=== PATIENT | female | born 1995 | race Caucasian/White ===

== ENCOUNTER 2022-03-06 23:28 | Emergency (ER) | payer OTHER, SELFPAY ==
--- NOTE | ~2022-03-06 | CT_ITS ---
EXAMINATION: NONCONTRAST HEAD CT NONCONTRAST CERVICAL SPINE CT INDICATION INFORMATION: Fall, injury, neck pain COMPARISON: None TECHNIQUE: Separate noncontrast CT examinations of the head and cervical spine were performed. Coronal head CT images and coronal and sagittal cervical spine images were created at the technologist workstation. DLP: 1448 mGy-cm DOSE LOWERING TECHNIQUES: This CT examination was performed using dose optimization techniques as appropriate, variously including the following: - Automated exposure control - Adjustment of mA and/or kV according to patient size (this includes techniques or standardized protocols for targeted exams were dose is matched to indication/reason for exam; i.e. extremities or head) - Use of iterative reconstruction technique FINDINGS: Head: There is no evidence of acute intracranial hemorrhage or territorial infarction. No abnormal mass-effect or midline shift is seen. Echevarria to white matter differentiation is well preserved. No extra-axial fluid collections are identified. The ventricles are normal in size. There is no abnormal attenuation within the brain parenchyma. No acute fracture seen. Mild right posterior scalp soft tissue swelling. The mastoid air cells and visualized portions of the paranasal sinuses are well-aerated. Cervical spine: There is reversal of the normal cervical lordosis, which may be due to positioning or muscle spasm. There is anatomic alignment of the vertebral bodies and posterior elements. Vertebral body heights are maintained. Intervertebral disc spaces are preserved. No evidence of acute fracture. No prevertebral soft tissue swelling. Visualized portions of the lung apices are unremarkable. The thyroid gland is unremarkable. CT/CT cervical spine wo IV con IMPRESSION: HEAD: No acute intracranial findings. Mild right posterior scalp soft tissue injury. CERVICAL SPINE: Reversal of the normal cervical lordosis, which may be due to positioning or muscle spasm. No additional acute findings identified.
[2022-03-07 00:09] VITALS: BP 122/72; PULSE 89; RESP 17; TEMP 36.3; O2SAT 97; BMI 32.1
--- NOTE | 2022-03-07 01:02 | ED.FALL ---
HPI - Fall General Chief Complaint: Wound/Laceration Stated Complaint: fall, head wound Time Seen by Provider: 03/07/22 00:38 Source: patient Mode of arrival: ambulatory Limitations: no limitations History of Present Illness HPI Narrative: 26-year-old female who presents emergency department for evaluation of headache, nausea, vomiting. Patient states that she was drinking 1 day prior and fell at 04:00 hours. She does not recall the details of the fall. She states that she did have a laceration to the right back of her head but did not come to the emergency department at the time of the fall. She states that throughout the day she has had a constant, pounding headache which is 10/10 located the back of her head the area of the laceration. She states that she has had nausea and vomiting. She has taken naproxen and Tylenol without any relief for pain. She denies any numbness or weakness. She denied loss of bowel or bladder control. She states that her last tetanus shot was within 5 years and she is up-to-date. MD complaint: fall Onset (ago): hour(s) (20) Fall from: standing Fall witnessed: no Loss of consciousness: unsure Prolonged down time: no Symptoms prior to fall: none Context: alcohol use Location of injury: head Severity scale (1-10): 10 Quality: throbbing Associated symptoms (after fall): headache and neck pain Related Data Previous Rx's Medication Instructions Recorded morphine 15 mg immediate release 15 mg PO Q4-6H PRN pain #10 tabs 03/07/22 tablet ondansetron 4 mg disintegrating 4 mg PO Q6-8H PRN nausea and 03/07/22 tablet vomiting #14 tabs Allergies Allergy/AdvReac Type Severity Reaction Status Date / Time No Known Allergies Allergy Verified 03/07/22 01:20 Review of Systems Review of Systems: Yes all other systems are reviewed and are negative [facility] Past Medical History [facility] Narrative: Past medical history: None. Past surgical history: Bilateral tubal ligation. Social history: She denies tobacco use. She does drink alcohol and states she was drinking prior to falling. She denies drug use. Social History Social History Advance Directives: No Advance Directives Information Provided: Yes Physical Exam Vital Signs: Vital Signs: Last Vital Signs Temp 97.3 F 03/07/22 00:09 Pulse 89 03/07/22 00:09 Resp 16 03/07/22 01:37 BP 122/72 03/07/22 00:09 Pulse Ox 97 03/07/22 00:09 O2 Del Method 03/07/22 00:09 BMI result Body Mass Index 32.1 Const: General: cooperative and no acute distress Orientation/consciousness: oriented to person and oriented to place Limitations: no limitations HEENT: Other: 5 cm linear laceration to the right posterior scalp, this is not actively bleeding it does appear to be healing at this point, does not appear to be infected Head: Yes normal to inspection and Yes normocephalic Ears: external ears normal General nose exam: Normal external nose present Face and sinus: Yes normal facial exam Mouth: Normal oral and palatal mucosa present Throat: Yes posterior oropharynx normal Eyes: General: appearance normal, both eyes and all related structures Pupils: Equal, round and reactive pupils present Neck: Neck: Yes normal visual inspection, Yes no lymphadenopathy, Yes trachea midline and Yes supple Chest: Chest palpation & inspection: normal inspection of the chest and normal palpation of entire chest wall Resp: Effort & Inspection: normal respiratory effort and able to speak in complete sentences Auscultation: clear to auscultation bilaterally Cardio: Rate: regular rate Rhythm: regular rhythm Heart sounds: S1 normal heart sound present, S2 normal heart sound present and no murmurs GI: Inspection: Yes normal to inspection Palpation (GI): Soft to palpation, nontender and no guarding Auscultation: normal bowel sounds : General: Yes no CVA tenderness Back/Spine/Pelvis: Back: no CVA tenderness Skin: General skin exam: no rashes or lesions noted Neuro: General: oriented to person and oriented to place Cranial nerves: Yes CN's II-XII intact bilaterally and Yes Equal, round and reactive pupils present Cognition (Neuro): normal cognition Motor exam (neuro): 5/5 motor strength present throughout Extrem: General: Yes normal to inspection Psych: Appearance: grossly normal Speech and movement: Normal speech and movement present Affect: normal affect Attitude: cooperative Thought process: Normal thought process present Thought content: Normal thought content present Course Course Course Narrative: 26-year-old female who presents emergency department for evaluation of a head injury that occurred approximately 20 hours prior to being evaluated in the emergency department. Patient has a healing laceration to her scalp which is too old to be repaired. Patient had headache, nausea and vomiting. Patient's physical examination was otherwise unremarkable in her neurologic exam was nonfocal. I did order laboratory evaluation, CT scan of the patient's head and neck without IV contrast. Patient was treated with morphine 4 mg IV Zofran 4 mg IV and normal saline x1 L. 0229: The patient's CT scan results are not available and her labs are not available at this time. Patient states that she has an emergency at home has to go home to take care of her kids. At this time I believe that the patient is stable to be discharged however I told her it is possible she could have skull fracture bleeding in her brain if she leaves at this time she could . The patient understood the risks of leaving and decided that she will go home because she needs to take care of her children. I will contact the patient with the results as soon as they are available to me. 0412: CT scan of the patient's head and neck was normal. I did contact the patient advise her of these results. Told her to continue taking ibuprofen and Tylenol and for pain not relieved by these 2 medications she was prescribed morphine. She also prescribe Zofran for her nausea and vomiting. Medications Administered Discontinued Medications Generic Name Dose Route Start Last Admin Trade Name Freq PRN Reason Stop Dose Admin Sodium Chloride 1,000 mls @ 999 mls/hr 03/07/22 01:14 03/07/22 02:36 Ns IV 03/07/22 02:14 Infused .Q1H1M STA Infusion Morphine Sulfate 4 mg 03/07/22 01:14 03/07/22 01:37 Morphine Sulfate 4 Mg/Ml Cartridge IVPUSH 03/07/22 01:15 4 mg ONCE STA Administration Protocol Ondansetron HCl 4 mg 03/07/22 01:14 03/07/22 01:37 Ondansetron Hcl 4 Mg/2 Ml Vial IVPUSH 03/07/22 01:15 4 mg ONCE ONE Administration MDM - Fall Lab Data Result diagrams: 03/07/22 01:49 03/07/22 01:49 Labs: Lab Results 03/07/22 03/07/22 03/07/22 Range/Units 01:49 01:49 01:49 WBC 5.9 (4.8-10.8) X10*3/uL RBC 4.13 L (4.20-5.50) X10*6/uL Hgb 14.0 (12.0-16.0) g/dl Hct 39.3 (37.0-47.0) % MCV 95.2 (80.0-98.0) fL MCH 33.9 H (27.0-33.0) pg MCHC 35.6 H (31.0-35.0) g/dl RDW 12.6 (11.0-16.0) % Plt Count 200 (160-400) X10*3/uL MPV 9.6 (9.4-12.3) fL Immature Gran % (Auto) 0.3 (0.0-0.4) % Neut % (Auto) 39.1 L (45-73) % Lymph % (Auto) 49.9 H (20-40) % [place] % (Auto) 7.8 (2-11) % Eos % (Auto) 2.4 (0-4) % Baso % (Auto) 0.5 (0-2) % Lymph # (Auto) 3.0 (1.2-4.9) X10*3/uL [place] # (Auto) 0.5 (0.1-1.2) X10*3/uL Eos # (Auto) 0.1 (0.0-0.4) X10*3/uL Baso # (Auto) 0.0 (0.0-0.2) X10*3/uL Abs Immat Gran (auto) 0.02 (0.00-0.03) X10*3/uL Absolute Neuts (auto) 2.3 (2.0-8.3) x10*3/uL Absolute Nucleated RBC 0.000 (0.0-0.012) X10*3/uL Nucleated RBC % (auto) 0.0 (0.0-0.2) /100WBC PT 12.4 (10.0-13.1) SEC INR 1.1 (0.9-1.1) APTT 31.7 (26.0-36.4) SEC Sodium Cancelled Potassium Cancelled Chloride Cancelled Carbon Dioxide Cancelled Anion Gap Cancelled BUN Cancelled Creatinine Cancelled Estim Creat Clear Calc Cancelled Estimated GFR Cancelled Random Glucose Cancelled Calcium Cancelled Total Bilirubin Cancelled AST Cancelled ALT Cancelled Alkaline Phosphatase Cancelled Total Protein Cancelled Albumin Cancelled Discharge Plan Discharge Clinical Impression: Closed head injury, Laceration of scalp, Concussion, Nausea & vomiting Patient Disposition: Home, Self-Care Instructions: Concussion (ED) Additional Instructions: I will call you with the results of the CT scans of your head and neck. Take ibuprofen 200 mg pills, 3 pills every 6 hours as needed for pain. Take Tylenol (acetaminophen) 2 pills every 4-6 hours as needed for pain. For pain not relieved by ibuprofen or Tylenol take morphine 15 mg pills, 1 pill every 4 hours as needed for pain. This medication will make you sleepy, do not drive or work while taking this medication. Morphine is a narcotic medication and can be addicting. If you are concerned about addiction you can ask the pharmacist for less pills or do not get this prescription filled. Take Zofran ODT 4 mg pills, 1 pill dissolved in your mouth every 8 hours as needed for nausea and vomiting. Follow-up with your doctor in 2 days. Please return to the emergency department if your symptoms get worse or if you develop any symptoms that are concerning to you. Apply bacitracin twice a day for 10 days to the laceration under scalp. Watch the laceration for signs of infection which would include increased pain, increased swelling, drainage of pus. If you see any of these signs you think the laceration is infected then you should call your doctor for follow-up return to the emergency department. Prescriptions: New morphine 15 mg tablet 15 mg PO Q4-6H PRN (Reason: pain) Qty: 10 0RF Rx Instructions: The patient may ask for partial fill; Partial Fill upon patient request. ondansetron 4 mg tablet,disintegrating 4 mg PO Q6-8H PRN (Reason: nausea and vomiting) Qty: 14 0RF Interventions: ED Discharge Assessment Last Done: 03/07/22 02:39 Discharge Date/Time: 03/07/22 02:40
[2022-03-07 01:37] VITALS: RESP 16
[2022-03-07] MEDS: Morphine Sulfate 4 MG/ML CARTRIDGE IVPUSH (01:37)
[2022-03-07] MEDS: ondansetron HCL 4 MG/2 ML VIAL IVPUSH (01:37)
[2022-03-07] MEDS: 0.9 % Sodium Chloride 1,000 ML 999 ML IV (01:37)
[2022-03-07 01:54] LABS: Basophils Percent Auto 0.5 % (0-2); Eosinophils Absolute Auto 0.1 X10*3/uL (0.0-0.4); Eosinophils Percent Auto 2.4 % (0-4); Hematocrit 39.3 % (37.0-47.0); Imm Gran Abs Auto 0.02 X10*3/uL (0.00-0.03); Imm Gran Pct Auto 0.3 % (0.0-0.4); Lymphocytes Percent Auto 49.9 % (20-40); MANUAL DIFF FLAG NO; Mean Corpuscular HGB Conc 35.6 g/dl (31.0-35.0); Mean Corpuscular Hemoglobin 33.9 pg (27.0-33.0); Mean Corpuscular Volume 95.2 fL (80.0-98.0); Mean Platelet Volume 9.6 fL (9.4-12.3); Monocytes Absolute Auto 0.5 X10*3/uL (0.1-1.2); Monocytes Percent Auto 7.8 % (2-11); Neutrophils Absolute Auto 2.3 x10*3/uL (2.0-8.3); Neutrophils Percent Auto 39.1 % (45-73); Platelet Count 200 X10*3/uL (160-400); Red Blood Count 4.13 X10*6/uL (4.20-5.50); Red Cell Distribution Width 12.6 % (11.0-16.0); White Blood Count 5.9 X10*3/uL (4.8-10.8)
[2022-03-07 02:00] LABS: INTERNATIONAL NORM RATIO 1.1 (0.9-1.1); Prothrombin Time 12.4 SEC (10.0-13.1)
[2022-03-07 02:03] LABS: Partial Thromboplastin Time 31.7 SEC (26.0-36.4)
--- NOTE | 2022-03-07 02:37 | PC.NURSE ---
Pt. resting in bed with IV in place. Pharmacy called for a recollect of labs. Pt. was having an emergency at home, therefore pt. rapidly dc'd. Labs not collected, aware and okayed. Pt. to be called with results of CT scans.
== END 2022-03-07 02:40 | disposition home or self-care (01) ==
PROVIDERS: Emergency Provider Emergency Medicine Emergency Medical Services
DX: S01.01XA Laceration without foreign body of scalp, initial encounter (principal); S06.0X0A Concussion without loss of consciousness, initial encounter; R51.9 Headache, unspecified; M54.2 Cervicalgia; W18.30XA Fall on same level, unspecified, initial encounter; Y93.9 Activity, unspecified; Y92.9 Unspecified place or not applicable; Y99.9 Unspecified external cause status
CPT/HCPCS: 36415; 70450; 72125; 80053; 85025; 85610; 85730; 96361; 96374; 96375; 99283; 99284; J2270; J2405

== ENCOUNTER 2022-07-27 01:58 | Emergency (ER) | payer MEDICAID, SELFPAY ==
--- NOTE | ~2022-07-27 | US_ITS ---
EXAMINATION: US PELVIS CLINICAL INFORMATION: Pelvic pain. Rule out torsion. COMPARISON: October 11, 2010. TECHNIQUE: Ultrasound of the pelvis is performed using both transabdominal and transvaginal transducers along with Doppler. Transvaginal imaging is performed due to inadequate visualization transabdominally. FINDINGS: Uterus: The uterus is anteverted and measures 9.7 x 4.7 x 5.7 cm. The double wall endometrial thickness is 7 mm. The uterus is smooth in contour and has normal myometrial echogenicity. No visible fibroid. Adnexa: Both ovaries are visualized. There is normal color flow to the adnexa. There is no evidence of ovarian torsion. No pelvic ascites or fluid collection is appreciated. Right ovary measures 2.6 x 1.8 x 2.8 cm. Left ovary measures 3.0 x 2.7 x 2.1 cm. US/US pelvic and transvaginal IMPRESSION: Unremarkable transabdominal and transvaginal pelvic ultrasound examinations.
--- NOTE | ~2022-07-27 | US_ITS ---
EXAMINATION: US PELVIS CLINICAL INFORMATION: Pelvic pain. Rule out torsion. COMPARISON: October 11, 2010. TECHNIQUE: Ultrasound of the pelvis is performed using both transabdominal and transvaginal transducers along with Doppler. Transvaginal imaging is performed due to inadequate visualization transabdominally. FINDINGS: Uterus: The uterus is anteverted and measures 9.7 x 4.7 x 5.7 cm. The double wall endometrial thickness is 7 mm. The uterus is smooth in contour and has normal myometrial echogenicity. No visible fibroid. Adnexa: Both ovaries are visualized. There is normal color flow to the adnexa. There is no evidence of ovarian torsion. No pelvic ascites or fluid collection is appreciated. Right ovary measures 2.6 x 1.8 x 2.8 cm. Left ovary measures 3.0 x 2.7 x 2.1 cm. US/US pelvic ovarian doppler IMPRESSION: Unremarkable transabdominal and transvaginal pelvic ultrasound examinations.
[2022-07-27 02:01] VITALS: BP 124/77; PULSE 101; RESP 18; TEMP 36.8; O2SAT 100; BMI 26.9
[2022-07-27 02:29] LABS: MANUAL DIFF FLAG NO
[2022-07-27 02:30] LABS: Basophils Percent Auto 0.4 % (0-2); Eosinophils Absolute Auto 0.2 X10*3/uL (0.0-0.4); Eosinophils Percent Auto 2.4 % (0-4); Hematocrit 43.4 % (37.0-47.0); Hemoglobin 15.5 g/dl (12.0-16.0); Imm Gran Abs Auto 0.01 X10*3/uL (0.00-0.03); Imm Gran Pct Auto 0.1 % (0.0-0.4); Lymphocytes Absolute Auto 3.8 X10*3/uL (1.2-4.9); Lymphocytes Percent Auto 50.7 % (20-40); Mean Corpuscular HGB Conc 35.7 g/dl (31.0-35.0); Mean Corpuscular Hemoglobin 33.9 pg (27.0-33.0); Mean Platelet Volume 9.3 fL (9.4-12.3); Monocytes Absolute Auto 0.4 X10*3/uL (0.1-1.2); Monocytes Percent Auto 5.7 % (2-11); Neutrophils Percent Auto 40.7 % (45-73); Platelet Count 272 X10*3/uL (160-400); Red Blood Count 4.57 X10*6/uL (4.20-5.50); White Blood Count 7.4 X10*3/uL (4.8-10.8)
[2022-07-27 03:03] LABS: Anion Gap 15 (12-20); Blood Urea Nitrogen 8 mg/dL (9-16); Calcium 8.9 mg/dL (8.4-10.2); Carbon Dioxide 24 mmol/L (22-29); Chloride 108 mmol/L (96-108); Creatinine Clr Calc Pharmacy 110.7; Estimated Glomerular Filt Rate > 60; Glucose Random 84 mg/dL (60-115); Potassium 4.5 mmol/L (3.3-5.1); Sodium 142 mmol/L (135-145)
[2022-07-27 03:15] LABS: Appearance Urine Clear; Color Urine Yellow; Glucose Urine UA Negative (Negative); Leukocyte Esterase Urine Negative (Negative); Nitrite Urine Negative (Negative); PH 5.5 (5.0-9.0); Urine Blood Negative (Negative); Urine Ketones Negative (Negative); Urine Protein Negative (Neg-Trace)
--- NOTE | 2022-07-27 03:53 | PC.NURSE ---
placed 22 in RAC. Notified Cali Landa
--- NOTE | 2022-07-27 04:06 | ED_ITS ---
HPI - Abdominal Pain General Chief Complaint: Abdominal Pain Stated Complaint: abp pain, ovaries in pain, spotting Time Seen by Provider: 07/27/22 04:05 Source: patient Mode of arrival: ambulatory Limitations: no limitations History of Present Illness HPI narrative: Patient increasing pain over the last few months, now worse. Patient states she has her normal discharge, irregular period. LMP 1.5 months ago, patient has not had irregular painful periods, same sexual partner, no green or yellow vaginal discharge. MD elicited complaint: abdominal pain Onset (ago): month(s) Pain Consistency: intermittent Quality: sharp Related Data Previous Rx's Medication Instructions Recorded morphine 15 mg immediate release 15 mg PO Q4-6H PRN pain #10 tabs 03/07/22 tablet ondansetron 4 mg disintegrating 4 mg PO Q6-8H PRN nausea and 03/07/22 tablet vomiting #14 tabs Allergies Allergy/AdvReac Type Severity Reaction Status Date / Time No Known Allergies Allergy Verified 03/07/22 01:20 Review of Systems Review of Systems Yes all other systems are reviewed and are negative Comments: bilateral pelvic pain PMFSH Social History Social History Alcohol intake: current Alcohol intake frequency: 0-2 drinks per day Use of substances other than those prescribed or required for medical reasons: No Advance Directives: No Advance Directives Information Provided: Yes Patient : No Physical Exam ED Vital Signs: Vital Signs - 24 hr 07/27/22 02:01 07/27/22 05:10 Temperature 98.3 F 97.7 F Pulse Rate 101 H 77 Respiratory Rate 18 17 Blood Pressure 124/77 108/67 Pulse Oximetry 100 96 Oxygen Delivery Method Room Air Room Air BMI result Body Mass Index 26.9 Const General: healthy appearing Nutritional Appearance: average body habitus Orientation/consciousness: oriented to person and patient oriented x3 Limitations: no limitations HENMT Head: Yes normal to inspection Ears: external ears normal General nose exam: Normal external nose present Mouth: Normal oral and palatal mucosa present and oropharynx normal Throat: Yes posterior oropharynx normal Eyes General: appearance normal, both eyes and all related structures Neck Neck: Yes normal visual inspection Chest Chest palpation & inspection: normal inspection of the chest Resp Auscultation: clear to auscultation bilaterally Cardio Jugular venous distension: no JVD Rate: regular rate Rhythm: regular rhythm Heart sounds: S1 normal heart sound present and S2 normal heart sound present GI Inspection: Yes normal to inspection Palpation (GI): Soft to palpation, nontender and No hepatosplenomegaly present Auscultation: normal bowel sounds General: Yes no CVA tenderness Back/Spine/Pelvis Back: no CVA tenderness Skin General skin exam: no rashes or lesions noted Neuro General: oriented to person and patient oriented x3 Cranial nerves: Yes CN's II-XII intact bilaterally Motor exam (neuro): 5/5 motor strength present throughout Extrem General: Yes normal to inspection Psych Appearance: grossly normal Course Reevaluation(s) Reevaluation #1: awaiting on ultrasound will sign out to Dr. Fierro, impression is ovarian cyst, irregular menses Time: 07:32 Medical Decision Making Differential Diagnosis Differential Diagnoses: The differential diagnosis associated with the presentation includes (ectopic , ovarian cyst, STD, irregular menses) Lab Data MDM Lab Attestation statement: I reviewed the patient's lab results. 07/27/22 02:24 07/27/22 02:24 Labs: Lab Results 07/27/22 07/27/22 07/27/22 Range/Units 02:24 02:24 03:06 WBC 7.4 (4.8-10.8) X10*3/uL RBC 4.57 (4.20-5.50) X10*6/uL Hgb 15.5 (12.0-16.0) g/dl Hct 43.4 (37.0-47.0) % MCV 95.0 (80.0-98.0) fL MCH 33.9 H (27.0-33.0) pg MCHC 35.7 H (31.0-35.0) g/dl RDW 14.0 (11.0-16.0) % Plt Count 272 D (160-400) X10*3/uL MPV 9.3 L (9.4-12.3) fL Immature Gran % (Auto) 0.1 (0.0-0.4) % Neut % (Auto) 40.7 L (45-73) % Lymph % (Auto) 50.7 H (20-40) % [place] % (Auto) 5.7 (2-11) % Eos % (Auto) 2.4 (0-4) % Baso % (Auto) 0.4 (0-2) % Lymph # (Auto) 3.8 (1.2-4.9) X10*3/uL [place] # (Auto) 0.4 (0.1-1.2) X10*3/uL Eos # (Auto) 0.2 (0.0-0.4) X10*3/uL Baso # (Auto) 0.0 (0.0-0.2) X10*3/uL Abs Immat Gran (auto) 0.01 (0.00-0.03) X10*3/uL Absolute Neuts (auto) 3.0 (2.0-8.3) x10*3/uL Absolute Nucleated RBC 0.000 (0.0-0.012) X10*3/uL Nucleated RBC % (auto) 0.0 (0.0-0.2) /100WBC Sodium 142 (135-145) mmol/L Potassium 4.5 (3.3-5.1) mmol/L Chloride 108 (96-108) mmol/L Carbon Dioxide 24 (22-29) mmol/L Anion Gap 15 (12-20) BUN 8 L (9-16) mg/dL Creatinine 0.78 (0.5-1.4) mg/dL Estim Creat Clear Calc 110.7 Estimated GFR > 60 Random Glucose 84 (60-115) mg/dL Calcium 8.9 (8.4-10.2) mg/dL Urine Color Yellow Urine Appearance Clear Urine pH 5.5 (5.0-9.0) Ur Specific [place] 1.020 (1.005-1.025) Urine Protein Negative (Neg-Trace) mg/dL Urine Glucose (UA) Negative (Negative) mg/dL Urine Ketones Negative (Negative) mg/dL Urine Blood Negative (Negative) Urine Nitrite Negative (Negative) Ur Leukocyte Esterase Negative (Negative) Urine Test (NEGATIVE) 07/27/22 Range/Units 03:06 WBC (4.8-10.8) X10*3/uL RBC (4.20-5.50) X10*6/uL Hgb (12.0-16.0) g/dl Hct (37.0-47.0) % MCV (80.0-98.0) fL MCH (27.0-33.0) pg MCHC (31.0-35.0) g/dl RDW (11.0-16.0) % Plt Count (160-400) X10*3/uL MPV (9.4-12.3) fL Immature Gran % (Auto) (0.0-0.4) % Neut % (Auto) (45-73) % Lymph % (Auto) (20-40) % [place] % (Auto) (2-11) % Eos % (Auto) (0-4) % Baso % (Auto) (0-2) % Lymph # (Auto) (1.2-4.9) X10*3/uL [place] # (Auto) (0.1-1.2) X10*3/uL Eos # (Auto) (0.0-0.4) X10*3/uL Baso # (Auto) (0.0-0.2) X10*3/uL Abs Immat Gran (auto) (0.00-0.03) X10*3/uL Absolute Neuts (auto) (2.0-8.3) x10*3/uL Absolute Nucleated RBC (0.0-0.012) X10*3/uL Nucleated RBC % (auto) (0.0-0.2) /100WBC Sodium (135-145) mmol/L Potassium (3.3-5.1) mmol/L Chloride (96-108) mmol/L Carbon Dioxide (22-29) mmol/L Anion Gap (12-20) BUN (9-16) mg/dL Creatinine (0.5-1.4) mg/dL Estim Creat Clear Calc Estimated GFR Random Glucose (60-115) mg/dL Calcium (8.4-10.2) mg/dL Urine Color Urine Appearance Urine pH (5.0-9.0) Ur Specific [place] (1.005-1.025) Urine Protein (Neg-Trace) mg/dL Urine Glucose (UA) (Negative) mg/dL Urine Ketones (Negative) mg/dL Urine Blood (Negative) Urine Nitrite (Negative) Ur Leukocyte Esterase (Negative) Urine Test NEGATIVE (NEGATIVE) Medications Administered Discontinued Medications Generic Name Dose Route Start Last Admin Trade Name Freq PRN Reason Stop Dose Admin Ketorolac Tromethamine 60 mg 07/27/22 04:11 07/27/22 04:41 Ketorolac Tromethamine 60 Mg/2 Ml Vial IM 04/25/23 04:12 60 mg ONCE ONE Administration Discharge Plan Discharge Clinical Impression: Pelvic pain Patient Disposition: Still a Patient Prescriptions: No Action morphine 15 mg tablet 15 mg PO Q4-6H PRN (Reason: pain) Qty: 10 0RF Rx Instructions: The patient may ask for partial fill; Partial Fill upon patient request. ondansetron 4 mg tablet,disintegrating 4 mg PO Q6-8H PRN (Reason: nausea and vomiting) Qty: 14 0RF
[2022-07-27 04:40] LABS: UPreg QC Valid YES; Urine Pregnancy NEGATIVE (NEGATIVE)
[2022-07-27] MEDS: Ketorolac Tromethamine 60 MG/2 ML VIAL IM (04:41)
[2022-07-27 05:10] VITALS: BP 108/67; PULSE 77; RESP 17; TEMP 36.5; O2SAT 96
--- NOTE | 2022-07-27 05:11 | MHC.EDTECH ---
pt vitals were taken , pt is sound asleep
--- NOTE | 2022-07-27 08:30 | PC.NURSE ---
pt sleeping in her room , she reports cramping, no nausea reported awaiting us results
[2022-07-27] MEDS: Acetaminophen 325 MG TABLET 975 MG PO (09:35)
== END 2022-07-27 09:43 | disposition home or self-care (01) ==
PROVIDERS: Emergency Medicine; Emergency Provider Student in an Organized Health Care Education/Training Program
DX: N94.89 Other specified conditions associated with female genital organs and menstrual cycle (principal); R10.2 Pelvic and perineal pain; N93.9 Abnormal uterine and vaginal bleeding, unspecified; Z79.899 Other long term (current) drug therapy
CPT/HCPCS: 36415; 76830; 76856; 80048; 81003; 81025; 85025; 93975; 96372; 99284; J1885

== ENCOUNTER 2022-11-11 00:03 | Emergency (ER) | payer MEDICAID, SELFPAY ==
--- NOTE | ~2022-11-11 | CT_ITS ---
EXAMINATION: CT HEAD WITHOUT CONTRAST CLINICAL INFORMATION: Headache. Seizure. COMPARISON: None available. TECHNIQUE: Contiguous axial imaging was performed from the skull base to vertex without intravenous administration of contrast. This CT examination was performed using dose optimization techniques as appropriate, variously including the following: *Automated exposure control *Adjustment of mA and/or kV according to patient size (this includes techniques or standardized protocols for targeted exams where dose is matched to indication/reason for exam; i.e. extremities or head) *Use of iterative reconstruction technique DLP: 648.29 mGy-cm FINDINGS: The lateral, third and fourth ventricles are normally outlined. The basal cisterns and cortical sulci are normally outlined as well. There is no acute territorial defect, hemorrhage or midline shift. The extra-axial spaces are unremarkable. Calvarium: Intact. Maxillofacial sinuses and mastoids: Clear as visualized. CT/CT head/brain wo IV con IMPRESSION: No acute intracranial pathology.
[2022-11-11 00:11] VITALS: BP 143/86; PULSE 94; RESP 18; TEMP 37; O2SAT 98; BMI 35.9
[2022-11-11 00:31] VITALS: BP 132/73; PULSE 96; RESP 17; TEMP 37; O2SAT 97
--- NOTE | 2022-11-11 00:32 | PC.NURSE ---
Pt c&ox4, no signs of distress. Pt denies chest pain or sob. vitals stable. Plan of care ongoing.
[2022-11-11 00:35] LABS: MANUAL DIFF FLAG NO
[2022-11-11 00:36] LABS: Basophils Percent Auto 0.4 % (0-2); Eosinophils Absolute Auto 0.5 X10*3/uL (0.0-0.4); Eosinophils Percent Auto 4.7 % (0-4); Hematocrit 40.5 % (37.0-47.0); Imm Gran Abs Auto 0.02 X10*3/uL (0.00-0.03); Imm Gran Pct Auto 0.2 % (0.0-0.4); Lymphocytes Absolute Auto 3.2 X10*3/uL (1.2-4.9); Lymphocytes Percent Auto 30.5 % (20-40); Mean Corpuscular HGB Conc 34.6 g/dl (31.0-35.0); Mean Corpuscular Hemoglobin 32.8 pg (27.0-33.0); Mean Corpuscular Volume 94.8 fL (80.0-98.0); Mean Platelet Volume 9.2 fL (9.4-12.3); Monocytes Absolute Auto 0.7 X10*3/uL (0.1-1.2); Monocytes Percent Auto 6.2 % (2-11); Neutrophils Absolute Auto 6.1 x10*3/uL (2.0-8.3); Platelet Count 330 X10*3/uL (160-400); Red Blood Count 4.27 X10*6/uL (4.20-5.50); Red Cell Distribution Width 12.2 % (11.0-16.0); White Blood Count 10.4 X10*3/uL (4.8-10.8)
--- NOTE | 2022-11-11 00:54 | ED_ITS ---
HPI - General Adult General Chief complaint: Headache Stated complaint: migraines Time Seen by Provider: 11/11/22 00:34 Source: patient, RN notes reviewed and old records reviewed Mode of arrival: ambulatory Limitations: no limitations History of Present Illness HPI narrative: 47-year-old female with past medical history significant for anxiety, depression bipolar disorder presents for evaluation of a headache. Patient reports approximately 3 weeks ago she believes she had a seizure at home She describes tonic-clonic shaking for approximately 12 minutes She denies any history of seizures Patient says she has been under significant amount of stress in her personal life She states that EMS was called at the time of her reported seizure but ?I was a responsible and declined to go to the hospital. ? She reports having had headaches ever since that incident 3 weeks ago She states the headache is global, severe She has associated light sensitivity Patient reports that she has been using Advil more than recommended because ?that is only thing that helps my pain. ? Related Data Previous Rx's Medication Instructions Recorded morphine 15 mg immediate release 15 mg PO Q4-6H PRN pain #10 tabs 03/07/22 tablet ondansetron 4 mg disintegrating 4 mg PO Q6-8H PRN nausea and 03/07/22 tablet vomiting #14 tabs metoclopramide HCl 10 mg tablet 10 mg PO Q6H PRN nausea and 11/11/22 (Reglan) vomiting #14 tabs Allergies Allergy/AdvReac Type Severity Reaction Status Date / Time No Known Allergies Allergy Verified 03/07/22 01:20 Review of Systems Constitutional: Constitutional: Denies chills, Denies fever(s) and Reports headache(s) Eyes: Eyes: Denies blurry vision, Denies loss of peripheral vision, Denies loss of vision and Reports photophobia ENT: Reports headache(s) Cardiovascular: Cardiovascular: Denies chest pain and Denies dyspnea Respiratory: Respiratory: Denies cough and Denies dyspnea Gastrointestinal: Gastrointestinal: Denies abdominal pain, Denies nausea and Denies vomiting Neurologic: Reports headache(s) and Denies loss of vision PMFSH Social History Social History Alcohol intake: current Alcohol intake frequency: holidays/special occasions only Smoked in Last 30 Days: Yes Use of substances other than those prescribed or required for medical reasons: Yes Substance Use Type: Marijuana Advance Directives: No Advance Directives Information Provided: Yes Physical Exam ED Vital Signs: Vital Signs - 24 hr 11/11/22 00:11 11/11/22 00:31 11/11/22 02:35 Temperature 98.6 F 98.6 F 98.9 F Pulse Rate 94 96 78 Respiratory Rate 18 17 16 Blood Pressure 143/86 H 132/73 116/79 Pulse Oximetry 98 97 96 Oxygen Delivery Method Room Air Room Air Room Air BMI result Body Mass Index 35.9 Const General: healthy appearing, comfortable, no acute distress, alert and awake Nutritional Appearance: well nourished Orientation/consciousness: patient oriented x3 HENMT Head: Yes normocephalic and Yes atraumatic Throat: Yes posterior oropharynx normal Eyes Eyelids: Yes eyelids normal Conjunctivae: conjunctivae normal Sclerae: sclerae normal Corneas: corneas normal Pupils: Equal, round and reactive pupils present EOM: EOMs intact bilaterally Direct Ophthalmoscopy: photophobia Neck Neck: Yes full ROM Resp Effort & Inspection: normal respiratory effort, able to speak in complete sentences and not labored Skin General skin exam: no rashes or lesions noted and elasticity normal Neuro General: patient oriented x3 Cranial nerves: Yes CN's II-XII intact bilaterally, Yes Equal, round and reactive pupils present and Yes Bilaterally intact EOM present Cognition (Neuro): normal cognition Motor exam (neuro): 5/5 motor strength present throughout, Pronator motor function not present, no tremor noted, no asterixis, Motor fasciculations not present and Normal motor muscle tone present throughout Coordination: [id number] test normal Extrem Other: Moving all extremities well without any obvious deformities Medications Administered Discontinued Medications Generic Name Dose Route Start Last Admin Trade Name Michelle PRN Reason Stop Dose Admin Acetaminophen/Butalbital/Caffeine 2 tab 11/11/22 00:48 11/11/22 01:02 Butalb/Acetamin/Caff 50/325/40 Tablet PO 11/11/22 00:49 2 tab ONCE ONE Administration Diphenhydramine HCl 25 mg 11/11/22 02:01 11/11/22 02:25 Diphenhydramine Hcl 50 Mg/Ml Vial IVPUSH 11/11/22 02:02 25 mg ONCE ONE Administration Sodium Chloride 1,000 mls @ 999 mls/hr 11/11/22 02:15 11/11/22 02:31 Ns IV 11/11/22 03:15 999 mls/hr .Q1H1M ELAN Administration Ketorolac Tromethamine 15 mg 11/11/22 02:01 11/11/22 02:27 Ketorolac Tromethamine 15 Mg/Ml Vial IVPUSH 11/11/22 02:02 15 mg ONCE ONE Administration Metoclopramide HCl 10 mg 11/11/22 02:01 11/11/22 02:29 Metoclopramide Hcl 10 Mg/2 Ml Vial IVPUSH 11/11/22 02:02 10 mg ONCE ONE Administration Morphine Sulfate 4 mg 11/11/22 03:07 11/11/22 03:15 Morphine Sulfate 4 Mg/Ml Cartridge IVPUSH 11/11/22 03:08 4 mg ONCE STA Administration Protocol Medical Decision Making Medical Decision Making MDM Narrative: 27-year-old female presents for evaluation of a headache. She reports a seizure 3 weeks ago and denies any history of seizures. For about a CT scan of the brain. It is unclear if it was a true seizure or pseudo-seizure/nonepileptic seizure. She denies having any seizure activity in the last 3 weeks since the initial episode. The patient was encouraged to stop taking Advil more than maximum daily dose. She states that she has been taking his ?6 Advil tablets every 6 hours. ? Will treat her headache with Fioricet while awaiting CT results labs are also ordered. The patient's physical exam is reassuring, she has no neurologic deficits at this time 0309: I assumed care of this patient from my colleague, physician oncology physician assistant. David Elena at 02:30 hours. The patient's headache improved from 8/10 to 5/10 she was given morphine 4 mg IV 0354: Patient is feeling better after the IV morphine. Patient will be discharged home with the following headache regimen: Regular in 10 mg, Benadryl 50 mg and Excedrin migraine 2 tabs every 6 hours as needed for pain. She was given printed and verbal instructions. Differential Diagnosis Differential Diagnoses: The differential diagnosis associated with the presentation includes Migraine headache Tension headache Seizure Pseudo-seizure Cluster headache Intracranial mass Intracranial hemorrhage Lab Data 11/11/22 00:31 11/11/22 00:31 Labs: Lab Results 11/11/22 11/11/22 Range/Units 00:31 00:31 WBC 10.4 (4.8-10.8) X10*3/uL RBC 4.27 (4.20-5.50) X10*6/uL Hgb 14.0 (12.0-16.0) g/dl Hct 40.5 (37.0-47.0) % MCV 94.8 (80.0-98.0) fL MCH 32.8 (27.0-33.0) pg MCHC 34.6 (31.0-35.0) g/dl RDW 12.2 (11.0-16.0) % Plt Count 330 (160-400) X10*3/uL MPV 9.2 L (9.4-12.3) fL Immature Gran % (Auto) 0.2 (0.0-0.4) % Neut % (Auto) 58.0 (45-73) % Lymph % (Auto) 30.5 (20-40) % [place] % (Auto) 6.2 (2-11) % Eos % (Auto) 4.7 H (0-4) % Baso % (Auto) 0.4 (0-2) % Lymph # (Auto) 3.2 (1.2-4.9) X10*3/uL [place] # (Auto) 0.7 (0.1-1.2) X10*3/uL Eos # (Auto) 0.5 H (0.0-0.4) X10*3/uL Baso # (Auto) 0.0 (0.0-0.2) X10*3/uL Abs Immat Gran (auto) 0.02 (0.00-0.03) X10*3/uL Absolute Neuts (auto) 6.1 (2.0-8.3) x10*3/uL Absolute Nucleated RBC 0.000 (0.0-0.012) X10*3/uL Nucleated RBC % (auto) 0.0 (0.0-0.2) /100WBC Sodium 139 (135-145) mmol/L Potassium 4.1 (3.3-5.1) mmol/L Chloride 108 (96-108) mmol/L Carbon Dioxide 21 L (22-29) mmol/L Anion Gap 14 (12-20) BUN 11 (9-16) mg/dL Creatinine 0.75 (0.5-1.4) mg/dL Estim Creat Clear Calc 110.3 Estimated GFR > 60 Random Glucose 92 (60-115) mg/dL Calcium 9.5 D (8.4-10.2) mg/dL Total Bilirubin 0.2 (0.0-1.0) mg/dL Direct Bilirubin < 0.2 (0.0-0.5) mg/dL AST 28 (5-31) U/L ALT 40 H (0-31) U/L Alkaline Phosphatase 104 (39-117) U/L Total Protein 7.5 (6.5-8.0) g/dL Albumin 4.0 (3.5-5.0) g/dL Lipase 18 (8-78) U/L Beta HCG, Quant < 2 mIU/mL Discharge Plan Discharge Clinical Impression: Headache Patient Disposition: Still a Patient Instructions: Acute Headache (ED) Additional Instructions: It is recommended that you do not drive until cleared to do so by your primary doctor (usually at least 6 months) if you had a seizure Your CT scan was reassuring Follow-up with your primary doctor Return for new or worsening symptoms I want you to take the following 3 medications together every 6 hours as needed for headache, nausea or vomiting. Reglan (metoclopramide) in 10 mg, 1 pill Benadryl 25 mg, 2 pills Excedrin migraine, 2 pills. After you take these medications, lie down in a dark quiet room and try to fall asleep. These medications will make you sleepy, do not drive or work after taking these medications. Please return to the emergency department if your symptoms get worse or if you develop any symptoms that are concerning to you. Prescriptions: New metoclopramide HCl [Reglan] 10 mg tablet 10 mg PO Q6H PRN (Reason: nausea and vomiting) Qty: 14 0RF No Action morphine 15 mg tablet 15 mg PO Q4-6H PRN (Reason: pain) Qty: 10 0RF Rx Instructions: The patient may ask for partial fill; Partial Fill upon patient request. ondansetron 4 mg tablet,disintegrating 4 mg PO Q6-8H PRN (Reason: nausea and vomiting) Qty: 14 0RF
[2022-11-11] MEDS: Butalb/Acetamin/Caff 50/325/40 TABLET 2 TAB PO (01:02)
[2022-11-11 01:03] LABS: Alanine Aminotransferase 40 U/L (0-31); Alkaline Phosphatase 104 U/L (39-117); Anion Gap 14 (12-20); Aspartate Amino Transferase 28 U/L (5-31); Bilirubin Direct < 0.2 mg/dL (0.0-0.5); Bilirubin Total 0.2 mg/dL (0.0-1.0); Blood Urea Nitrogen 11 mg/dL (9-16); Calcium 9.5 mg/dL (8.4-10.2); Carbon Dioxide 21 mmol/L (22-29); Chloride 108 mmol/L (96-108); Creatinine Clr Calc Pharmacy 110.3; Estimated Glomerular Filt Rate > 60; Glucose Random 92 mg/dL (60-115); Lipase 18 U/L (8-78); Potassium 4.1 mmol/L (3.3-5.1); Sodium 139 mmol/L (135-145); Total Protein 7.5 g/dL (6.5-8.0)
--- NOTE | 2022-11-11 01:09 | PC.NURSE ---
Pt ambulated to the bathroom. Pt medicated per jun. Pt requested and given water. plan of care ongoing.
[2022-11-11 01:15] LABS: HCG Quantitative < 2 mIU/mL
[2022-11-11] MEDS: diphenhydrAMINE HCL 50 MG/ML VIAL 25 MG IVPUSH (02:25)
[2022-11-11] MEDS: Ketorolac Tromethamine 15 MG/ML VIAL IVPUSH (02:27)
[2022-11-11] MEDS: Metoclopramide HCl 10 MG/2 ML VIAL IVPUSH (02:29)
[2022-11-11] MEDS: 0.9 % Sodium Chloride 1,000 ML 999 ML IV (02:31)
[2022-11-11 02:35] VITALS: BP 116/79; PULSE 78; RESP 16; TEMP 37.2; O2SAT 96
--- NOTE | 2022-11-11 02:37 | PC.NURSE ---
Pt ca&ox4, no signs of distress. Pt reporting 10/10 headache. Vitals stable. Pt medicated per jun. Plan of care ongoing.
--- NOTE | 2022-11-11 02:41 | PC.NURSE ---
Pt requested and given food and drink.
[2022-11-11] MEDS: Morphine Sulfate 4 MG/ML CARTRIDGE IVPUSH (03:15)
== END 2022-11-11 04:32 | disposition home or self-care (01) ==
PROVIDERS: Physician Assistant; Emergency Provider Emergency Medicine Emergency Medical Services
DX: R51.9 Headache, unspecified (principal); F41.9 Anxiety disorder, unspecified; F33.1 Major depressive disorder, recurrent, moderate; Z79.899 Other long term (current) drug therapy; Z63.8 Other specified problems related to primary support group
CPT/HCPCS: 36415; 70450; 80048; 80076; 83690; 84702; 85025; 96361; 96374; 96375; 99285; J1200; J1885; J2270; J2765

== ENCOUNTER 2023-03-11 10:27 | Emergency (ER) | payer MEDICAID, SELFPAY ==
[2023-03-11 11:02] VITALS: BP 112/70; PULSE 81; RESP 16; TEMP 37.1; O2SAT 98; BMI 34.0
--- NOTE | 2023-03-11 11:07 | ED.GENADULT ---
HPI - General Adult General Chief complaint: Abdominal Pain Stated complaint: got tubes tied, 2 + preg test, in pain Source: patient, RN notes reviewed and old records reviewed Mode of arrival: ambulatory Limitations: no limitations History of Present Illness HPI narrative: 27-year-old female presents for evaluation of lower abdominal/flank pain. She reports she had 2 positive tests that were at home test yesterday. Patient reports that she had her 2 styes several years ago. She has received her menstrual cycle in the middle of February and it was ?only 2 days. Patient is going to a [facility] an admission for 2:00 p.m. in [place] and a test prior to going. She is requesting a ?blood test. ? Denies any burning with urination, fevers, chills No other complaints or concerns at this time Related Data Previous Rx's Medication Instructions Recorded morphine 15 mg immediate release 15 mg PO Q4-6H PRN pain #10 tabs 03/07/22 tablet ondansetron 4 mg disintegrating 4 mg PO Q6-8H PRN nausea and 03/07/22 tablet vomiting #14 tabs metoclopramide HCl 10 mg tablet 10 mg PO Q6H PRN nausea and 11/11/22 (Reglan) vomiting #14 tabs Allergies Allergy/AdvReac Type Severity Reaction Status Date / Time No Known Allergies Allergy Verified 03/07/22 01:20 Review of Systems Constitutional: Constitutional: Denies chills and Denies fever(s) Cardiovascular: Cardiovascular: Denies chest pain and Denies dyspnea Respiratory: Respiratory: Denies cough and Denies dyspnea Gastrointestinal: Gastrointestinal: Reports abdominal pain, Denies nausea and Denies vomiting Genitourinary: Genitourinary: Denies difficulty voiding and Denies vaginal discharge Musculoskeletal: Musculoskeletal: Reports back pain PMFSH Social History Social History Alcohol intake: current Alcohol intake frequency: holidays/special occasions only Substance Use Type: Marijuana Advance Directives: No Advance Directives Information Provided: No Physical Exam ED Vital Signs: Vital Signs - 24 hr 03/11/23 11:02 Temperature 98.8 F Pulse Rate 81 Respiratory Rate 16 Blood Pressure 112/70 Pulse Oximetry 98 Oxygen Delivery Method Room Air BMI result Body Mass Index 34.0 Const General: healthy appearing, comfortable, no acute distress, alert and awake Nutritional Appearance: well nourished Orientation/consciousness: patient oriented x3 HENMT Head: Yes normocephalic and Yes atraumatic Eyes Eyelids: Yes eyelids normal Conjunctivae: conjunctivae normal Sclerae: sclerae normal Corneas: corneas normal Pupils: Equal, round and reactive pupils present EOM: EOMs intact bilaterally Neck Neck: Yes full ROM Resp Effort & Inspection: normal respiratory effort, able to speak in complete sentences and not labored Skin General skin exam: elasticity normal Neuro General: patient oriented x3 Cranial nerves: Yes Equal, round and reactive pupils present and Yes Bilaterally intact EOM present Cognition (Neuro): normal cognition Extrem Other: Moving all extremities well without any obvious deformities Course Course Course Narrative: RME- 27-year-old female presents for evaluation lower abdominal pain back pain. She reports that she to her test yesterday despite having her tubes plan labs, ultrasound Reevaluation(s) Reevaluation #1: I canceled the ultrasound to rule ectopic as the patient is not . Patient is requesting information on ectopic in her discharge papers. Time: 12:24 Medical Decision Making Medical Decision Making [facility] Narrative: A 27-year-old female presents for evaluation of lower abdominal/flank pain. Plan for labs, serum HCG and ultrasound ordered. The patient's serum hCG was less than 2 and therefore I canceled the well-being ultrasound. Labs are within normal limits. UA is still pending Differential Diagnosis Differential Diagnoses: The differential diagnosis associated with the presentation includes Abdominal pain Flank pain Obstructive uropathy Ectopic Lab Data [facility] Lab Attestation statement: I reviewed the patient's lab results. No leukocytosis or anemia. Normal platelet count. No significant electrolyte abnormalities. Normal renal function. HCG less than 2 03/11/23 11:13 03/11/23 11:14 Labs: Lab Results 03/11/23 03/11/23 Range/Units 11:13 11:14 WBC 6.4 (4.8-10.8) X10*3/uL RBC 4.44 (4.20-5.50) X10*6/uL Hgb 14.1 (12.0-16.0) g/dl Hct 41.3 (37.0-47.0) % MCV 93.0 (80.0-98.0) fL MCH 31.8 (27.0-33.0) pg MCHC 34.1 (31.0-35.0) g/dl RDW 12.4 (11.0-16.0) % Plt Count 217 D (160-400) X10*3/uL MPV 9.8 (9.4-12.3) fL Immature Gran % (Auto) 0.3 (0.0-0.4) % Neut % (Auto) 62.9 (45-73) % Lymph % (Auto) 28.2 (20-40) % [place] % (Auto) 7.2 (2-11) % Eos % (Auto) 1.1 (0-4) % Baso % (Auto) 0.3 (0-2) % Lymph # (Auto) 1.8 (1.2-4.9) X10*3/uL [place] # (Auto) 0.5 (0.1-1.2) X10*3/uL Eos # (Auto) 0.1 (0.0-0.4) X10*3/uL Baso # (Auto) 0.0 (0.0-0.2) X10*3/uL Abs Immat Gran (auto) 0.02 (0.00-0.03) X10*3/uL Absolute Neuts (auto) 4.0 (2.0-8.3) x10*3/uL Absolute Nucleated RBC 0.000 (0.0-0.012) X10*3/uL Nucleated RBC % (auto) 0.0 (0.0-0.2) /100WBC Sodium 139 (135-145) mmol/L Potassium 4.4 (3.3-5.1) mmol/L Chloride 106 (96-108) mmol/L Carbon Dioxide 26 (22-29) mmol/L Anion Gap 11 L (12-20) BUN 8 L (9-16) mg/dL Creatinine 0.73 (0.5-1.4) mg/dL Estim Creat Clear Calc 110.1 Estimated GFR > 60 Random Glucose 86 (60-115) mg/dL Calcium 9.5 (8.4-10.2) mg/dL Total Bilirubin 0.3 (0.0-1.0) mg/dL AST 22 (5-31) U/L ALT 40 H (0-31) U/L Alkaline Phosphatase 98 (39-117) U/L Total Protein 7.3 (6.5-8.0) g/dL Albumin 4.2 (3.5-5.0) g/dL Lipase 31 (8-78) U/L Beta HCG, Quant < 2 mIU/mL Blood Type O Positive Antibody Screen NEGATIVE Discharge Plan Discharge Clinical Impression: Back pain Patient Disposition: Home, Self-Care Instructions: Ectopic (DC) Additional Instructions: Your blood work was within normal limits. Your blood test was negative, you are not . Follow-up with your primary doctor Prescriptions: No Action morphine 15 mg tablet 15 mg PO Q4-6H PRN (Reason: pain) Qty: 10 0RF Rx Instructions: The patient may ask for partial fill; Partial Fill upon patient request. ondansetron 4 mg tablet,disintegrating 4 mg PO Q6-8H PRN (Reason: nausea and vomiting) Qty: 14 0RF metoclopramide HCl [Reglan] 10 mg tablet 10 mg PO Q6H PRN (Reason: nausea and vomiting) Qty: 14 0RF
[2023-03-11 11:20] LABS: MANUAL DIFF FLAG NO
[2023-03-11 11:26] LABS: Basophils Percent Auto 0.3 % (0-2); Eosinophils Absolute Auto 0.1 X10*3/uL (0.0-0.4); Eosinophils Percent Auto 1.1 % (0-4); Hematocrit 41.3 % (37.0-47.0); Hemoglobin 14.1 g/dl (12.0-16.0); Imm Gran Abs Auto 0.02 X10*3/uL (0.00-0.03); Imm Gran Pct Auto 0.3 % (0.0-0.4); Lymphocytes Absolute Auto 1.8 X10*3/uL (1.2-4.9); Lymphocytes Percent Auto 28.2 % (20-40); Mean Corpuscular HGB Conc 34.1 g/dl (31.0-35.0); Mean Corpuscular Hemoglobin 31.8 pg (27.0-33.0); Mean Platelet Volume 9.8 fL (9.4-12.3); Monocytes Absolute Auto 0.5 X10*3/uL (0.1-1.2); Monocytes Percent Auto 7.2 % (2-11); Neutrophils Percent Auto 62.9 % (45-73); Platelet Count 217 X10*3/uL (160-400); Red Blood Count 4.44 X10*6/uL (4.20-5.50); Red Cell Distribution Width 12.4 % (11.0-16.0); White Blood Count 6.4 X10*3/uL (4.8-10.8)
[2023-03-11 11:42] LABS: Alanine Aminotransferase 40 U/L (0-31); Albumin Level 4.2 g/dL (3.5-5.0); Alkaline Phosphatase 98 U/L (39-117); Anion Gap 11 (12-20); Aspartate Amino Transferase 22 U/L (5-31); Bilirubin Total 0.3 mg/dL (0.0-1.0); Blood Urea Nitrogen 8 mg/dL (9-16); Calcium 9.5 mg/dL (8.4-10.2); Carbon Dioxide 26 mmol/L (22-29); Chloride 106 mmol/L (96-108); Creatinine Clr Calc Pharmacy 110.1; Estimated Glomerular Filt Rate > 60; Glucose Random 86 mg/dL (60-115); Lipase 31 U/L (8-78); Potassium 4.4 mmol/L (3.3-5.1); Sodium 139 mmol/L (135-145); Total Protein 7.3 g/dL (6.5-8.0)
[2023-03-11 11:50] LABS: HCG Quantitative < 2 mIU/mL
[2023-03-11 12:30] LABS: Appearance Urine Clear; Color Urine Yellow; Glucose Urine UA Negative (Negative); Leukocyte Esterase Urine Negative (Negative); Nitrite Urine Negative (Negative); PH 8.5 (5.0-9.0); Specific Gravity - Urine 1.015 (1.005-1.025); Urine Blood Negative (Negative); Urine Ketones Negative (Negative); Urine Protein Negative (Neg-Trace)
[2023-03-11 12:32] LABS: Bacteria Urine None Seen (None Seen); Hyaline Casts Urine 0-2 /LPF (0-2); RBC Urine 0-2 /HPF (0-2); Squamous Epithelial Cell Urine 0-2 /HPF (0-2); WBC Urine 0-5 /HPF (0-5)
== END 2023-03-11 12:37 | disposition home or self-care (01) ==
PROVIDERS: Physician Assistant; Emergency Provider Emergency Medicine
DX: M54.50 Low back pain, unspecified (principal); Z79.899 Other long term (current) drug therapy
CPT/HCPCS: 36415; 80053; 81001; 83690; 84702; 85025; 86850; 86900; 86901; 99282; 99283

== ENCOUNTER 2024-06-08 09:16 | Emergency (ER) | payer MEDICAID, SELFPAY ==
[2024-06-08 10:07] VITALS: BP 143/95; PULSE 95; RESP 18; TEMP 36.8; O2SAT 96; BMI 37.8
[2024-06-08 10:40] LABS: MANUAL DIFF FLAG NO
[2024-06-08 10:43] LABS: Appearance Urine Cloudy; Color Urine Yellow; Glucose Urine UA Negative (Negative); Leukocyte Esterase Urine Moderate (2+) (Negative); Nitrite Urine Positive (Negative); UMIC TRIGGER UACC YES; Urine Blood Negative (Negative); Urine Ketones Trace mg/dL (Negative); Urine Protein 30 (1+) mg/dL (Neg-Trace)
[2024-06-08 10:49] LABS: Bacteria Urine 4+ (None Seen); Basophils Percent Auto 0.4 % (0-2); Eosinophils Absolute Auto 0.1 X10*3/uL (0.0-0.4); Eosinophils Percent Auto 1.5 % (0-4); Hemoglobin 15.7 g/dl (12.0-16.0); Imm Gran Abs Auto 0.01 X10*3/uL (0.00-0.03); Imm Gran Pct Auto 0.2 % (0.0-0.4); Lymphocytes Absolute Auto 2.3 X10*3/uL (1.2-4.9); Lymphocytes Percent Auto 45.2 % (20-40); Mean Corpuscular HGB Conc 35.7 g/dl (31.0-35.0); Mean Corpuscular Hemoglobin 32.7 pg (27.0-33.0); Mean Corpuscular Volume 91.7 fL (80.0-98.0); Mean Platelet Volume 9.7 fL (9.4-12.3); Monocytes Absolute Auto 0.3 X10*3/uL (0.1-1.2); Neutrophils Absolute Auto 2.4 x10*3/uL (2.0-8.3); Neutrophils Percent Auto 46.7 % (45-73); Platelet Count 270 X10*3/uL (160-400); RBC Urine 0-2 /HPF (0-2); Red Cell Distribution Width 13.2 % (11.0-16.0); Squamous Epithelial Cell Urine >20 /HPF (0-2); UACC Culture Trigger YES; WBC Urine >50 /HPF (0-5); White Blood Count 5.2 X10*3/uL (4.8-10.8)
--- NOTE | 2024-06-08 11:00 | ED_ITS ---
HPI - Female Genitourinary General Chief complaint: Urogenital-Female Stated complaint: UTI?, fever Time Seen by Provider: 06/08/24 10:55 Source: patient Mode of arrival: ambulatory Limitations: no limitations History of Present Illness HPI Narrative: This is a 29-year-old woman with a past medical history of anxiety /depression, bipolar disorder who presents for evaluation of dysuria and flank pain. she states that for the last 3 weeks she has had dysuria and urinary frequency/ urgency. She states that she feels like she has a UTI. She reports having UTIs in the past. She states no fevers, but states having chills over the last few days. She reports gradually worsening flank pain over the last 4-5 days. She states that this is worse on the right side. She states no trauma. She states no abdominal pain or chest pain. She states no changes in bowel habits. She reports that she is able to eat and drink. She states no chest pain or dyspnea. She states no known drug allergies. Related Data Previous Rx's ?Medication ?Instructions ?Recorded morphine 15 mg immediate release 15 mg PO Q4-6H PRN pain #10 tabs 03/07/22 tablet ondansetron 4 mg disintegrating 4 mg PO Q6-8H PRN nausea and 03/07/22 tablet vomiting #14 tabs metoclopramide HCl 10 mg tablet 10 mg PO Q6H PRN nausea and 11/11/22 (Reglan) vomiting #14 tabs amoxicillin 875 mg-potassium 1 tab PO BID 10 days #20 tabs 06/08/24 clavulanate 125 mg tablet phenazopyridine 200 mg tablet 200 mg PO TID PRN pain 2 days #5 06/08/24 (Pyridium) tabs Allergies Allergy/AdvReac Type Severity Reaction Status Date / Time No Known Allergies Allergy Verified 06/08/24 10:08 Review of Systems 2 Review of Systems: ROS as per HPI [facility] Social History Social History Alcohol intake: current Alcohol intake frequency: holidays/special occasions only Substance Use Type: Marijuana Physical Exam 2 Vital Signs: Vital Signs: Last Vital Signs Temp 98.3 F 06/08/24 10:07 Pulse 95 06/08/24 10:07 Resp 18 06/08/24 10:07 BP 143/95 H 06/08/24 10:07 Pulse Ox 96 06/08/24 10:07 O2 Del Method Room Air 06/08/24 10:07 BMI result Body Mass Index 37.8 Gen: NAD, AOx3 HEENT: NCAT, EOMI, normal conjunctiva CV: RRR Pulm: CTAB, no increased work of breathing GI: Soft, NTND, no rebound, guarding or rigidity Neuro: Grossly non focal Medical Decision Making Medical Decision Making [facility] Narrative: Differential diagnosis includes, but is not limited toUrinary tract infection, cystitis, pyelonephritis. Patient is afebrile and hemodynamically stable on room air. Exam is benign and reassuring although notable for right-sided costovertebral angle tenderness. Given provided history we will treat empirically for pyelonephritis. Patient is provided Augmentin here in the emergency room as well as Pyridium. On re-examination, patient is well-appearing and in no acute distress. There is no indication for further emergent evaluation in this otherwise well-appearing patient as above. Patient is provided written and verbal instructions, educational materials, recommendations for outpatient follow-up, prescription for Pyridium and Augmentin, strict return precautions and teach back is performed. Patient states understanding and agreement with plan of care. Patient is discharged home in stable and improved condition. Admission/Observation Consideration of admission/observation: Escalation of care including admission/observation considered Lab Data [facility] Lab Attestation statement: I reviewed the patient's lab results. CBC is unremarkable with no cell lines or insurance. Metabolic panel reassuring with no evidence of acute kidney injury or electrolyte abnormality. Beta hCG is negative. Urinalysis is consistent with urinary tract infection Given evidence of leukocyte esterase, 4+ bacteria and positive urine nitrite. 06/08/24 10:35 06/08/24 10:35 Labs: Lab Results 06/08/24 Range/Units 10:35 WBC 5.2 (4.8-10.8) X10*3/uL RBC 4.80 (4.20-5.50) X10*6/uL Hgb 15.7 (12.0-16.0) g/dl Hct 44.0 (37.0-47.0) % MCV 91.7 (80.0-98.0) fL MCH 32.7 (27.0-33.0) pg MCHC 35.7 H (31.0-35.0) g/dl RDW 13.2 (11.0-16.0) % Plt Count 270 (160-400) X10*3/uL MPV 9.7 (9.4-12.3) fL Immature Gran % (Auto) 0.2 (0.0-0.4) % Neut % (Auto) 46.7 (45-73) % Lymph % (Auto) 45.2 H (20-40) % [place] % (Auto) 6.0 (2-11) % Eos % (Auto) 1.5 (0-4) % Baso % (Auto) 0.4 (0-2) % Lymph # (Auto) 2.3 (1.2-4.9) X10*3/uL [place] # (Auto) 0.3 (0.1-1.2) X10*3/uL Eos # (Auto) 0.1 (0.0-0.4) X10*3/uL Baso # (Auto) 0.0 (0.0-0.2) X10*3/uL Abs Immat Gran (auto) 0.01 (0.00-0.03) X10*3/uL Absolute Neuts (auto) 2.4 (2.0-8.3) x10*3/uL Absolute Nucleated RBC 0.000 (0.0-0.012) X10*3/uL Nucleated RBC % (auto) 0.0 (0.0-0.2) /100WBC Urine Color Yellow Urine Appearance Cloudy Urine pH 6.0 (5.0-9.0) Ur Specific [place] 1.020 (1.005-1.025) Urine Protein 30 (1+) H (Neg-Trace) mg/dL Urine Glucose (UA) Negative (Negative) mg/dL Urine Ketones Trace (Negative) mg/dL Urine Blood Negative (Negative) Urine Nitrite Positive H (Negative) Ur Leukocyte Esterase Moderate (2+) H (Negative) Urine RBC 0-2 (0-2) /HPF Urine WBC >50 H (0-5) /HPF Ur Squamous Epith Cells >20 (0-2) /HPF Urine Bacteria 4+ (None Seen) Hyaline Casts 3-5 (0-2) /LPF Discharge Plan Discharge Clinical Impression: Urinary tract infection Patient Disposition: Home, Self-Care Instructions: Urinary Tract Infection in Women (ED) Additional Instructions: You were seen and evaluated in the emergency room. You are found to have a urinary tract infection and started on antibiotics. You were given a prescription for antibiotics. Please take as directed and until completed. Your next dose should be taken tonight. You are also given a prescription to help alleviate your symptoms of painful urination. Please take as direted. Please follow-up with your primary care doctor in the next 1-2 weeks. Return to the emergency room with any new concerns or symptoms. Prescriptions: New amoxicillin-pot clavulanate 875-125 mg tablet 1 tab PO BID 10 Days Qty: 20 0RF phenazopyridine [Pyridium] 200 mg tablet 200 mg PO TID PRN (Reason: pain) 2 Days Qty: 5 0RF No Action morphine 15 mg tablet 15 mg PO Q4-6H PRN (Reason: pain) Qty: 10 0RF Rx Instructions: The patient may ask for partial fill; Partial Fill upon patient request. ondansetron 4 mg tablet,disintegrating 4 mg PO Q6-8H PRN (Reason: nausea and vomiting) Qty: 14 0RF metoclopramide HCl [Reglan] 10 mg tablet 10 mg PO Q6H PRN (Reason: nausea and vomiting) Qty: 14 0RF Stand Alone Forms: Work/School Release Print Language: Serbian
[2024-06-08 11:01] LABS: Alanine Aminotransferase 57 U/L (0-31); Albumin Level 4.3 g/dL (3.5-5.0); Anion Gap 10 (12-20); Aspartate Amino Transferase 36 U/L (5-31); Bilirubin Total 0.3 mg/dL (0.0-1.0); Blood Urea Nitrogen 6 mg/dL (9-16); Calcium 8.9 mg/dL (8.4-10.2); Carbon Dioxide 24 mmol/L (22-29); Chloride 110 mmol/L (96-108); Creatinine Clr Calc Pharmacy 119.4; Estimated Glomerular Filt Rate > 60; Glucose Fasting 114 mg/dL (60-99); HCG Quantitative < 2 mIU/mL; Sodium 140 mmol/L (135-145); Total Protein 7.7 g/dL (6.5-8.0)
[2024-06-08] MEDS: Phenazopyridine HCL 200 MG TABLET PO (11:16)
[2024-06-08] MEDS: Amoxicillin/Potassium Clav 875 MG TABLET PO (11:17)
[2024-06-08 11:20] VITALS: BP 143/95; PULSE 95; RESP 18; TEMP 36.8; O2SAT 96
[2024-06-08 12:11] LABS: Alkaline Phosphatase 103 U/L (39-117)
--- OUTSIDE RECORDS SUMMARY | 2024-06-08 12:44 | XMS_ITS | Clinical Summary ---
Author Organization [employer] Address [address] [facility] [address] [place] [address] Care Team Providers Care Government Affairs Manager Name Role Phone Nik Cheryl GRACIE Primary Care Provider [phone] Allergies No known active allergies Medications * This document contains information received from the source organization and may not represent a complete record from that organization. cloNIDine (Catapres) 0.1 MG tablet TAKE 2 TABLETS BY MOUTH AT BEDTIME NEEDED 3 Active prazosin (Minipress) 1 MG capsule Take 2 mg by mouth at bedtime. 3 Active amitriptyline (Elavil) 100 MG tablet Take 200 mg by mouth at bedtime. Active clonazePAM (KlonoPIN) 0.5 MG tablet Take 0.5 mg by mouth 3 times daily. Active lurasidone (Latuda) 60 MG tablet Take 20 mg by mouth with evening meal. Active naltrexone (Depade) 50 MG tablet Take 50 mg by mouth in the morning. Active albuterol 108 (90 Base) MCG/ACT inhalerIndication s:Mild intermittent asthma with acute exacerbation Inhale 2 puffs every 6 (six) hours if needed for wheezing or shortness of breath. 18 g 1 4 Active Mometasone Furoate (Asmanex HFA) 100 MCG/ACT aerosolIndication s:Mild intermittent asthma with acute exacerbation Inhale 2 puffs 2 times daily. 13 g 1 4 Active divalproex (Depakote) 250 MG EC tablet Take 250 mg by mouth Once per day. Do not crush, chew, or split. Active nicotine (Nicoderm CQ) 21 MG/24HR patch Place 1 patch on the skin 1 (one) time each day at the same time. Rotate sites. 28 patch 1 Active Active Problems Problem Noted Date Diagnosed Date Class 2 obesity 09/09/2023 Assessment & Plan (09/09/2023 3:06 PM EDT): Nutrition and exercise counseling Refer to [facility] program Praised for her efforts and encouraged her to continue Bipolar 2 disorder 09/09/2023 Assessment & Plan (09/09/2023 3:06 PM EDT): Mood is stable and she is feeling well. Encouraged to follow up with Psych as scheduled Cervical high risk HPV (human papillomavirus) te st positive 09/09/2023 Overview (09/09/2023): Pap August 2023, NILM with HPV Positive, repeat due August 2024 Family History Medical History Relation Name Comments Diabetes Maternal Grandmother Bipolar disorder Mother Breast cancer Paternal Grandmother Relation Name Status Comments Maternal Grandmother Mother Paternal Grandmother Social History Tobacco Use Types Packs/Day Years Used Date Smoking Tobacco: Former Cigarettes Smokeless Tobacco: Current Tobacco Cessation:Ready to Q uit: No; Counseling Given: Yes Comments:Vapes daily Alcohol Use Standard Drinks/Week Comments Not Currently 0 (1 standard drink = 0.6 oz pur e alcohol) Alcohol Answer Date Recorded How often do you have a drink containing alcohol ? 0 07/01/2023 How many drinks containing a lcohol do you have on a typical day when you are drinking? 0 07/01/2023 How often do you have six or more drinks on one occasion? 0 07/01/2023 Housing Stability Answer Date Recorded What is your housing situation today? I have sangeeta poon 07/01/[address] you li ve. Do you have problems with any of the following? None of the above 07/01/2023 Food Insecurity Answer Date Recorded Within the past 12 months, y ou worried that your food would run out before you got money to buy more: Never True 07/01/2023 Within the past 12 months,th e food you bought just didn't last and you didn't have enough money to get more: Never True Transportation Answer Date Recorded In the past 12 months, has l ack of transportation kept you from medical appts, meetings, work or from getting things needed for daily living? No 07/01/2023 Intimate Partner Violence Answer Date R ecorded Within the last year, have y ou been afraid of your partner or ex-partner? 2 07/01/2023 Within the last year, have y ou been humiliated or emotionally abused in other ways by your partner or ex-partner? 2 Within the last year, have y ou been kicked, hit, slapped, or otherwise physically hurt by your partner or ex-partner? 2 07/01/2023 Within the last year, have y ou been raped or forced to have any kind of sexual activity by your partner or ex-partner? 2 07/01/2023 Utilities Answer Date Recorded In the past 12 months, has t he electric, gas, oil or water company threatened to shut off services in your home? No 07/01/2023 Comments No Sex and Gender Information Value Date Recorded Sex Assigned at Female 02/01/2022 10:23 AM EDT Legal Sex Female 10:23 AM EDT Gender Identity Choose not to disclose 10:23 AM EDT Sexual Orientation Choose not to disclose 2021 10:23 AM EDT Last Filed Vital Signs Vital Sign Reading Time Taken Comments Blood Pressure 107/65 09/09/2023 2:07 PM EDT Pulse 96 09/09/2023 2:07 PM EDT Temperature 36.5 ??C (97.7 ??F) 09/09/2023 2:07 PM ED T Respiratory Rate - - Oxygen Saturation 97% 09/09/2023 2:07 PM EDT Inhaled Oxygen Concentration - - Weight 107 kg (235 lb) 09/09/2023 2:07 PM EDT Height 157.5 cm (5' 2 ) 09/09/2023 2:07 PM EDT Body Mass Index 42.98 09/09/2023 2:07 PM EDT Plan of Treatment Health Maintenance Due Date Last Done Comments Depression Screening 1993 Lipid Panel 1993 Hepatitis B Vaccines (1 of 3 - 19+ 3-dose series) 2012 Pneumococcal Vaccine: Pediatrics (0 to 5 Years) and At-Risk Patients (6 to 49) Years) (1 of 2 - PCV) 2012 COVID-19 Vaccine (1 - 2023-2 5 season) 2023 Influenza Vaccine (#1) 2023 12/16/2009 Alcohol/Substance Use Screening 06/30/2024 07/01/2023 SDOH Screening 06/30/2024 07/01/2023 Cervical Cancer Screening 08/24/2024 Family Planning (PISQ) 08/24/2024 08/25/2023 HPV/Cotest 08/24/2024 08/25/2023, 08/25/2023 Pap Smear 08/24/2024 08/25/2023 Tobacco Screening 09/08/2024 09/09/2023 DTaP/Tdap/Td Vaccines (2 - T d or Tdap) 09/21/2024 09/21/2014 Zoster Vaccines (1 of 2) 2043 RSV Patients and Patients Aged 60 years or older (1 - 1-dose 75+ series) 2068 HIV Screening Completed 08/25/2023, 09/24/2022 Hepatitis C Screening Completed 08/25/2023 , 09/24/2022 HIB Vaccines Aged Out No longer eligi ble based on patient's age to complete this topic HPV Vaccines Aged Out No longer eligi ble based on patient's age to complete this topic Hepatitis A Vaccines Aged Out No long er eligible based on patient's age to complete this topic IPV Vaccines Aged Out No longer eligi ble based on patient's age to complete this topic Meningococcal Vaccine Aged Out No nae eliza eligible based on patient's age to complete this topic RSV under 20 months Aged Out No longe r eligible based on patient's age to complete this topic Rotavirus Vaccines Aged Out No longer eligible based on patient's age to complete this topic Procedures Procedure Name Priority Date/Time Associated Diagnosis Comments HEPATITIS C AB W/REFL TO HCV RNA, QN, PCR Routine 08/25/2023 10:08 AM EDT Screening examination for sexually transmitted disease HIV 1/2 ANTIGEN/ANTIBODY, FOURTH GENERATION W/RFL Routine 08/25/2023 10:08 AM EDT Screening examination for sexually transmitted disease IMAGE-GUIDED PAP W/AGE BASED SCR,W/CT/NG/TRICH Routine 08/25/2023 12:00 AM EDT Screening for cervical cancer from Last 3 Months or Most Recently Relevant to Health Maintenance Results * Hepatitis C Antibody with Reflex to HCV, RNA, Quantitative, Real-Time PCR (08/25/2023 10:08 AM EDT) Hepatitis C Antibody NON-REACT RAYRAY NON-REACT RAYRAY [employer] [facility] Comment: HCV antibody was non-reactive. There is no laboratory evidence of HCV infection. In most cases, no further action is required. However, if recent HCV exposure is suspected, a test for HCV RNA (test code 21780) is suggested. For additional information please refer to http://education.Relayr/faq/IQK02b9 (This link is being provided for informational/ educational purposes only.) Blood Venous blood specimen / Unknown 08/25/2023 10:08 AM EDT 08/25/2023 10:11 AM EDT Narrative [facility] - 08/26/2023 9:32 AM EDT COLLECTION KIT GIVEN TO PATIENT. PATIENT ADVISED TO RETURN. us Cheryl Zaragoza NP LAB BLOOD ORDERABLES Final Resul t [facility] [address], [place] [address] [employer] [facility] [address] [place] [address] * HIV-1/2 Antigen and Antibodies, Fourth Generation, with Reflexes (08/25/2023 10:08 AM EDT) HIV Antigen/Antibody, 4th Generation NON-REAC TIVE NON-REAC TIVE [employer] [facility] Comment: HIV-1 antigen and HIV-1/HIV-2 antibodies were not detected. There is no laboratory evidence of HIV infection. PLEASE NOTE: This information has been disclosed to you from records whose confidentiality may be protected by state law. ??If your state requires such protection, then the state law prohibits you from making any further disclosure of the information without the specific written consent of the person to whom it pertains, or as otherwise permitted by law. A general authorization for the release of medical or other information is NOT sufficient for this purpose. ?? For additional information please refer to http://education.Relayr/faq/PQP987 (This link is being provided for informational/ educational purposes only.) The performance of this assay has not been clinically validated in patients less than 2 years old. Blood Venous blood specimen / Unknown 08/25/2023 10:08 AM EDT 08/25/2023 10:11 AM EDT Narrative [facility] - 08/26/2023 9:32 AM EDT COLLECTION KIT GIVEN TO PATIENT. PATIENT ADVISED TO RETURN. Cheryl Zaragoza NP LAB BLOOD ORDERABLES Final Resul t [facility] [address], [place] [address] [employer] [address] [place] [address] * (ABNORMAL) Image-Guided Pap with Age-Based Screening??with CT/NG,??Trichomonas (08/25/2023 12:00 AMEDT) Comment [employer] Comment: This order for age-based cervical cancer and STI screening follows ACOG guidelines(PB 168, 140, KYJ086). See individual assays for performing site location. Clinical Information: [facility] Comment:ASYMPTOMATIC LMP: [facility] Comment:08/18/23 Prev. PAP: [facility] Comment:NONE GIVEN Prev. BX: [facility] Comment:NONE GIVEN SOURCE: [facility] Comment:None given Statement Of Adequacy: [facility] Comment: Satisfactory for evaluation. Endocervical/transformation zone component present. Interpretation/Res ult: [facility] Comment: Cytology Results: Negative for intraepithelial lesion or malignancy. Infection [facility] Comment: Shift in vaginal fransico suggestive of bacterial vaginosis. COMMENT: [facility] Comment: This Pap test has been evaluated with computer assisted technology. Linux Devops Engineer: [employer] [facility] Comment: RK, CT(ASCP) CT screening location: [address] ??[id number] Review Linux Devops Engineer: [employer] Comment: GSG, CT(ASCP) CT screening location: [address] ??[address] (Always Message) Que st [facility] Comment: EXPLANATORY NOTE: The Pap is a screening test for cervical cancer. It is not a diagnostic test and is subject to false negative and false positive results. It is most reliable when a satisfactory sample, regularly obtained, is submitted with relevant clinical findings and history, and when the Pap result is evaluated along with historic and current clinical information. HPV nRNA E6/E7 Detected(A) Not Detected [employer] [facility] Comment: Methodology: Protective Service Specialist-Mediated Amplification This assay detects E6/E7 viral messenger RNA (mRNA) from 14 high-risk HPV types (16,18,31,33,35,39,45,51,52,56,58,59,66,68). Cervical sources are required for HPV testing. If a vaginal source from a patient who has had a total hysterectomy with removal of cervix was submitted, please contact the testing laboratory for alternative testing options. For additional information, please refer to http://DVTel/faq/RGE233e8 (This link if provided for information/ educational purposes only.) Chlamydia trachomatis RNA, TMA, Urogenital NOT DETECTED NOT DETECTED [employer] [facility] Neisseria gonorrhoeae RNA, TMA, Urogenital NOT DETECTED NOT DETECTED [employer] [facility] (Always Message) Que st [facility] Comment: The analytical performance characteristics of this assay, when used to test SurePath(TM) specimens have been determined by [facility]. The modifications have not been cleared or approved by the FDA. This assay has been validated pursuant to the CLIA regulations and is used for clinical purposes. For additional information, please refer to https://MyChurch.Relayr/faq/XTH445 (This link is being provided for information/ educational purposes only.) Trichomonas vaginalis, QL, TMA, PAP Vial NOT DETECTED NOT DETECTED [employer] [facility] Comment: The analytical performance characteristics of this assay have been determined by [employer] [facility]. The modifications have not been cleared or approved by the FDA. This assay has been validated pursuant to the CLIA regulations and is used for clinical purposes. For additional information, please refer to http://education.Relayr/ faq/Trichomonastma (This link is being provided for information/ educational purposes only.) Pap Vial 08/25/2023 08/26/2023 4:4 7 AM EDT Cheryl Zaragoza NP LAB CYTOLOGY ORDERABLES Final Re sult [facility] [address], [place] [address] [employer] [facility] [address] [place] [address] from Last 3 Months or Most Recently Relevant to Health Maintenance Insurance [id number] C3 Care Teams Government Affairs Manager Relationship Specialty Start Date End Date Cheryl Zaragoza NP [address] [place] [id number] PCP - General Family Medicine 07/29/23
--- OUTSIDE RECORDS SUMMARY | 2024-06-08 12:44 | XMS_ITS | Encounter Summary ---
Author Organization [employer] [facility] Address [address] [place] [address] 7 [place] [address] Care Team Providers Care Electrical & Instrumentation Supervisor Name Role Phone Emigdio Steven Unassigned Primary Care Provider U Cheryl Stallings FIRE ENGINE PUMP OPERATOR Primary Care Provider [phone] Brandon Mac PA-C Primary Care Provider [phone] Cheryl Zaragoza FIRE ENGINE PUMP OPERATOR Primary Care Provider [phone] Hortencia Rizzo Unavailable Encounter Details Date Type Department Care Team (Latest Contact Info) Description 11/17/2021 Abstract [facility] CONVERSIONS Dental, Provider, DDS Social History Tobacco Use Types Packs/Day Years Used Date Smoking Tobacco: Never Assessed Comments Unknown Sex and Gender Information Value Date Recorded Sex Assigned at Female 02/01/2022 10:23 AM EDT Legal Sex Female 10:23 AM EDT Gender Identity Choose not to disclose 10:23 AM EDT Sexual Orientation Choose not to disclose 2021 10:23 AM EDT documented as of this encounter Plan of Treatment Not on file documented as of this encounter Visit Diagnoses Not on filedocumented in this encounter Care Teams Electrical & Instrumentation Supervisor Relationship Specialty Start Date End Date Emigdio Steven PCP - General Family Medicine 07/21/23 07/24/23 Cheryl Zaragoza NP [address] [place] [address] PCP - General Family Medicine 07/25/23 07/26/23 Bradnon Mac PA-C [address] [place] [address] PCP - General Family Medicine 07/27/23 07/28/23 Cheryl Zaragoza NP [address] [place] [address] PCP - General Family Medicine 07/29/23 Hortencia Rizzo [address] [place] [id number] Community Health Worker 09/06/2310/17 documented as of this encounter
== END 2024-06-08 11:20 | disposition home or self-care (01) ==
PROVIDERS: Emergency Provider Emergency Medicine
DX: N39.0 Urinary tract infection, site not specified (principal)
CPT/HCPCS: 36415; 80053; 81001; 84702; 85025; 87086; 87088; 87186; 99283

== ENCOUNTER 2024-07-25 03:33 | Emergency (ER) | payer MEDICAID, SELFPAY ==
--- NOTE | ~2024-07-25 | XR_ITS ---
CLINICAL HISTORY: pain rad to her back 1 view chest x-ray. Comparison: None Findings: The lungs are adequately expanded. No focal consolidation. No effusion or pneumothorax. Cardiac and mediastinal contours are within normal limits. No acute osseous abnormality Impression: No acute process. This document has been electronically signed by: Jr Paulson MD on 07/25/2024 05:06:45
--- NOTE | ~2024-07-25 | CT_ITS ---
CLINICAL HISTORY: Right-sided abdominal pain CT abdomen and pelvis with contrast Comparison: None Findings: The lung bases are clear. The appendix is normal. No bowel obstruction, free air, free fluid, abscess or adenopathy. The liver, spleen, adrenal glands, pancreas, gallbladder, kidneys and ureters are normal. The bladder is decompressed and not well evaluated. Questionable minimal stranding about the bladder. Uterus and adnexa are within expected limits. No acute osseous finding. Impression: Normal appendix. Questionable faint stranding about the bladder. Correlation for cystitis This document has been electronically signed by: Jr Paulson MD on 07/25/2024 06:12:23
[2024-07-25 03:45] VITALS: BP 133/84; PULSE 104; RESP 16; TEMP 36.8; O2SAT 95; BMI 43.7
--- NOTE | 2024-07-25 03:57 | ECG_ITS ---
Test Reason : NAUSEA /VOMITING Blood Pressure : */* mmHG Vent. Rate : 98 BPM Atrial Rate : 98 BPM P-R Int : 134 ms QRS Dur : 76 ms QT Int : 358 ms P-R-T Axes : 32 9 7 degrees QTcB Int : 457 ms Normal sinus rhythm Normal ECG No previous ECGs available Referred By: Generic ED Physician Electronically Signed By: MARY HELMS
[2024-07-25 04:06] LABS: MANUAL DIFF FLAG NO
[2024-07-25 04:07] LABS: Basophils Percent Auto 0.2 % (0-2); Eosinophils Percent Auto 0.5 % (0-4); Hematocrit 40.1 % (37.0-47.0); Hemoglobin 14.3 g/dl (12.0-16.0); Imm Gran Abs Auto 0.02 X10*3/uL (0.00-0.03); Imm Gran Pct Auto 0.2 % (0.0-0.4); Lymphocytes Absolute Auto 3.2 X10*3/uL (1.2-4.9); Lymphocytes Percent Auto 35.5 % (20-40); Mean Corpuscular HGB Conc 35.7 g/dl (31.0-35.0); Mean Corpuscular Hemoglobin 32.4 pg (27.0-33.0); Mean Corpuscular Volume 90.7 fL (80.0-98.0); Mean Platelet Volume 10.1 fL (9.4-12.3); Monocytes Absolute Auto 0.5 X10*3/uL (0.1-1.2); Monocytes Percent Auto 5.1 % (2-11); Neutrophils Absolute Auto 5.2 x10*3/uL (2.0-8.3); Neutrophils Percent Auto 58.5 % (45-73); Platelet Count 215 X10*3/uL (160-400); Red Blood Count 4.42 X10*6/uL (4.20-5.50); Red Cell Distribution Width 12.8 % (11.0-16.0); White Blood Count 8.9 X10*3/uL (4.8-10.8)
--- NOTE | 2024-07-25 04:18 | MHC.EDTECH ---
Patient blood drawn ,rsv/covid swab collected and sent to lab ,Patient not able to give urine sample at this time ,rn aware .
--- OUTSIDE RECORDS SUMMARY | 2024-07-25 04:21 | XMS_ITS | Encounter Summary ---
Author Organization [employer] [facility] Address [address] [place] [address] [address] [place] [address] Care Team Providers Care Station Cashier Name Role Phone Emigdio Steven Unasspaige Primary Care Provider U Cheryl Stallings ASSISTED LIVING EXECUTIVE DIRECTOR Primary Care Provider Brandon Mac PA-C Primary Care Provider [phone] Cheryl Zaragoza ASSISTED LIVING EXECUTIVE DIRECTOR Primary Care Provider [phone] Hortencia Rizzo Unavailable Provider, Not In System Primary Care Provider Un available Encounter Details Date Type Department Care Team (Latest Contact Info) Description 11/17/2021 Abstract [facility] CONVERSIONS Dental, Provider, DDS Social History Tobacco [...] on filedocumented in this encounter Care Teams Station Cashier Relationship Specialty Start Date End Date Emigdio Steven PCP - General Family Medicine 07/21/23 07/24/23 Cheryl Zaragoza NP [address] [place] [address] PCP - General Family Medicine 07/25/23 07/26/23 Brandon Mac PA-C [address] [place] [address] PCP - General Family Medicine 07/27/23 07/28/23 Cheryl Zaragoza NP [address] [place] [address] PCP - General Family Medicine 07/29/23 06/07/24 Provider, Not In System PCP - General Family Medicine 06/08/24 Hortencia Rizzo [address] [place] [id number] Community Health Worker 09/06/2310/17 documented as of this encounter
--- NOTE | 2024-07-25 04:39 | ED_ITS ---
HPI - Abdominal Pain General Chief Complaint: Abdominal Pain Stated Complaint: stomach is burning Time Seen by Provider: 07/25/24 04:19 Source: patient Mode of arrival: ambulatory Limitations: no limitations History of Present Illness ED Provider: DR. Francis HPI narrative: 29-year-old female presented for evaluation of right-sided abdominal pain x3 days pain is mostly in the right mid abdomen radiates to the back, associated with nausea, no vomiting or diarrhea, last bowel movement with normal color and consistency yesterday, has been eating normally with good appetite, no dysuria, no frequency urination, no vaginal bleeding or discharge, declined chance of being , no history of intra-abdominal surgery. Related Data Previous Rx's ?Medication ?Instructions ?Recorded morphine 15 mg immediate release 15 mg PO Q4-6H PRN pain #10 tabs 03/07/22 tablet ondansetron 4 mg disintegrating 4 mg PO Q6-8H PRN nausea and 03/07/22 tablet vomiting #14 tabs metoclopramide HCl 10 mg tablet 10 mg PO Q6H PRN nausea and 11/11/22 (Reglan) vomiting #14 tabs amoxicillin 875 mg-potassium 1 tab PO BID 10 days #20 tabs 06/08/24 clavulanate 125 mg tablet phenazopyridine 200 mg tablet 200 mg PO TID PRN pain 2 days #5 06/08/24 (Pyridium) tabs ibuprofen 800 mg tablet 800 mg PO Q8H PRN pain #14 tabs 07/25/24 Allergies Allergy/AdvReac Type Severity Reaction Status Date / Time No Known Allergies Allergy Verified 07/25/24 03:48 Review of Systems Review of Systems All other systems are reviewed and are negative Constitutional: Reports as per HPI and Reports no additional constitutional complaints Eyes: Reports as per HPI and Reports no additional eye complaints Reports system reviewed and no additional complaints, except as documented Cardiovascular: Reports as per HPI and Reports no additional cardiovascular complaints Respiratory: Reports as per HPI and Reports no additional respiratory complaints Gastrointestinal: Reports as per HPI and Reports no additional gastrointestinal complaints Genitourinary: Reports no additional female genitourinary complaints Musculoskeletal: Reports no additional musculoskeletal complaints Skin/Breast: Reports system reviewed and no additional complaints, except as docu Psychiatric: Reports no additional psychiatric complaints Endocrine: Reports no additional endocrine complaints Hematologic/Lymphatic: Reports no additional hematologic/lymphatic complaints Allergic/Immunologic: Reports no additional allergic/immunologic complaints Reports system reviewed and no additional complaints, except as documented and Reports Abnormal speech present [facility] Social History Social History Alcohol intake: current Alcohol intake frequency: holidays/special occasions only Smoked in Last 30 Days: No Use of substances other than those prescribed or required for medical reasons: No Substance Use Type: Marijuana Advance Directives: No Do you have a plan to hurt others: No Plan Patient : No Physical Exam ED Vital Signs: Vital Signs - 24 hr 07/25/24 03:45 07/25/24 06:12 Temperature 98.3 F 98.7 F Pulse Rate 104 H 89 Respiratory Rate 16 16 Blood Pressure 133/84 120/66 Pulse Oximetry 95 97 Oxygen Delivery Method Room Air Room Air BMI result Body Mass Index 43.7 Vital signs have been reviewed and appear to be correct. Blood pressure elevated. Heart rate normal. Respiratory rate normal. Temperature normal. Oxygen saturation normal. Appearance: Alert. Oriented X3. No acute distress. Head: Normal external exam. Normocephalic. Atraumatic. No Uribe signs noted. No raccoon eyes noted Eyes: PERRLA. EOMI. Conjunctiva and sclera normal. Eyelids normal. ENT: TM's Normal. Pharynx normal. Uvula midline. Moist mucous membranes. No trismus noted. No drooling noted. No muffled voice noted. Neck: Normal inspection. Neck supple. FROM. No adenopathy. Thyroid Normal. No meningeal signs. No neck mass noted. CVS: Normal heart rate and rhythm. Heart sound normal. No murmurs noted. Pulses normal throughout. Respiratory: No respiratory distress. Painless inspiration. Breath sounds normal. No wheezes/rales/rhonchi noted. Chest nontender. No accessory muscle usage noted or decreased air movement noted. Abdomen: Soft , obese, mild mid abdominal tenderness, no rebound tenderness, no guarding. Bowel sounds normal in all 4 quadrants. No distention noted. No organomegaly noted. No visible injury noted. Back: No CVA tenderness. Full range of motion noted. Skin: Skin warm and dry. Normal skin color. Normal skin turgor. No rashes/lesions/lacerations noted. Extremities: No lower extremity edema. Extremities exhibit normal range of motion. Extremities nontender. Neuro: Oriented X 3. Cranial nerve exam: II-XII are grossly intact No motor deficit. No sensory deficit. Reflexes normal. Course Reevaluation(s) Reevaluation #1: Abdominal/back pain no acute finding on the CT or blood workup, clear urine. Will prescribe ibuprofen 800 mg, bed rest, heating pad. Time: 06:57 Medical Decision Making Differential Diagnosis Differential Diagnoses: The differential diagnosis associated with the presentation includes (Acute appendicitis, colitis, diverticulitis, myofascial back pain, UTI, pyelonephritis, electrolyte derangement, severe anemia.) Admission/Observation Consideration of admission/observation: Escalation of care including admission/observation considered Lab Data MDM Lab Attestation statement: I reviewed the patient's lab results. 07/25/24 03:59 07/25/24 03:59 Labs: Lab Results 07/25/24 07/25/24 07/25/24 Range/Units 03:59 04:00 04:32 WBC 8.9 (4.8-10.8) X10*3/uL RBC 4.42 (4.20-5.50) X10*6/uL Hgb 14.3 (12.0-16.0) g/dl Hct 40.1 (37.0-47.0) % MCV 90.7 (80.0-98.0) fL MCH 32.4 (27.0-33.0) pg MCHC 35.7 H (31.0-35.0) g/dl RDW 12.8 (11.0-16.0) % Plt Count 215 (160-400) X10*3/uL MPV 10.1 (9.4-12.3) fL Immature Gran % (Auto) 0.2 (0.0-0.4) % Neut % (Auto) 58.5 (45-73) % Lymph % (Auto) 35.5 (20-40) % [place] % (Auto) 5.1 (2-11) % Eos % (Auto) 0.5 (0-4) % Baso % (Auto) 0.2 (0-2) % Lymph # (Auto) 3.2 (1.2-4.9) X10*3/uL [place] # (Auto) 0.5 (0.1-1.2) X10*3/uL Eos # (Auto) 0.0 (0.0-0.4) X10*3/uL Baso # (Auto) 0.0 (0.0-0.2) X10*3/uL Abs Immat Gran (auto) 0.02 (0.00-0.03) X10*3/uL Absolute Neuts (auto) 5.2 (2.0-8.3) x10*3/uL Absolute Nucleated RBC 0.000 (0.0-0.012) X10*3/uL Nucleated RBC % (auto) 0.0 (0.0-0.2) /100WBC Sodium 139 (135-145) mmol/L Potassium 3.7 (3.3-5.1) mmol/L Chloride 106 (96-108) mmol/L Carbon Dioxide 20 L (22-29) mmol/L Anion Gap 17 (12-20) BUN 7 L (9-16) mg/dL Creatinine 0.73 (0.5-1.4) mg/dL Estim Creat Clear Calc 129.3 Estimated GFR > 60 Random Glucose 106 (60-115) mg/dL Calcium 9.0 (8.4-10.2) mg/dL Total Bilirubin 0.6 (0.0-1.0) mg/dL Direct Bilirubin 0.2 (0.0-0.5) mg/dL AST 44 H (5-31) U/L ALT 65 H (0-31) U/L Alkaline Phosphatase 112 (39-117) U/L Troponin I High Sens < 2.7 (<3.5-17.0) ng/L Total Protein 7.3 (6.5-8.0) g/dL Albumin 4.2 (3.5-5.0) g/dL Lipase 10 (8-78) U/L Urine Color Urine Appearance Urine pH (5.0-9.0) Ur Specific [place] (1.005-1.025) Urine Protein (Neg-Trace) mg/dL Urine Glucose (UA) (Negative) mg/dL Urine Ketones (Negative) mg/dL Urine Blood (Negative) Urine Nitrite (Negative) Ur Leukocyte Esterase (Negative) Urine Test NEGATIVE (NEGATIVE) Influenza Type A (PCR) NEGATIVE (Negative) Influenza Type B (PCR) NEGATIVE (Negative) RSV RNA Qual (PCR) NEGATIVE (Negative) SARS-CoV-2 RNA (RT-PCR) NEGATIVE (Negative) 07/25/24 Range/Units 06:33 WBC (4.8-10.8) X10*3/uL RBC (4.20-5.50) X10*6/uL Hgb (12.0-16.0) g/dl Hct (37.0-47.0) % MCV (80.0-98.0) fL MCH (27.0-33.0) pg MCHC (31.0-35.0) g/dl RDW (11.0-16.0) % Plt Count (160-400) X10*3/uL MPV (9.4-12.3) fL Immature Gran % (Auto) (0.0-0.4) % Neut % (Auto) (45-73) % Lymph % (Auto) (20-40) % [place] % (Auto) (2-11) % Eos % (Auto) (0-4) % Baso % (Auto) (0-2) % Lymph # (Auto) (1.2-4.9) X10*3/uL [place] # (Auto) (0.1-1.2) X10*3/uL Eos # (Auto) (0.0-0.4) X10*3/uL Baso # (Auto) (0.0-0.2) X10*3/uL Abs Immat Gran (auto) (0.00-0.03) X10*3/uL Absolute Neuts (auto) (2.0-8.3) x10*3/uL Absolute Nucleated RBC (0.0-0.012) X10*3/uL Nucleated RBC % (auto) (0.0-0.2) /100WBC Sodium (135-145) mmol/L Potassium (3.3-5.1) mmol/L Chloride (96-108) mmol/L Carbon Dioxide (22-29) mmol/L Anion Gap (12-20) BUN (9-16) mg/dL Creatinine (0.5-1.4) mg/dL Estim Creat Clear Calc Estimated GFR Random Glucose (60-115) mg/dL Calcium (8.4-10.2) mg/dL Total Bilirubin (0.0-1.0) mg/dL Direct Bilirubin (0.0-0.5) mg/dL AST (5-31) U/L ALT (0-31) U/L Alkaline Phosphatase (39-117) U/L Troponin I High Sens (<3.5-17.0) ng/L Total Protein (6.5-8.0) g/dL Albumin (3.5-5.0) g/dL Lipase (8-78) U/L Urine Color Yellow Urine Appearance Clear Urine pH 7.0 (5.0-9.0) Ur Specific [place] >= 1.030 H (1.005-1.025) Urine Protein Trace (Neg-Trace) mg/dL Urine Glucose (UA) Negative (Negative) mg/dL Urine Ketones Trace (Negative) mg/dL Urine Blood Negative (Negative) Urine Nitrite Negative (Negative) Ur Leukocyte Esterase Negative (Negative) Urine Test (NEGATIVE) Influenza Type A (PCR) (Negative) Influenza Type B (PCR) (Negative) RSV RNA Qual (PCR) (Negative) SARS-CoV-2 RNA (RT-PCR) (Negative) Independent Interpretation I performed an independent interpretation of an: CT Scan (Abdomen pelvis:The lung bases are clear. The appendix is normal. No bowel obstruction, free air, free fluid, abscess or adenopathy. The liver, spleen, adrenal glands, pancreas, gallbladder, kidneys and ureters are normal. The bladder is decompressed and not well evaluated. Questionable minimal str) Radiology Impression Discussion of test interpretation with radiology: I have reviewed the radiologist's reading. Medications Administered Discontinued Medications Generic Name Dose Route Start Last Admin Trade Name Freq PRN Reason Stop Dose Admin Sodium Chloride 1,000 mls @ 999 mls/hr 07/25/24 04:36 07/25/24 05:06 Ns IV 07/25/24 05:36 999 mls/hr .Q1H1M ONE Administration Iohexol 85 ml 07/25/24 05:14 07/25/24 05:15 Iohexol 350 Mg/Ml 100 Ml Infus..Btl IV 07/25/24 05:15 85 ml ONCE ONE Administration Ketorolac Tromethamine 15 mg 07/25/24 04:36 07/25/24 05:05 Ketorolac Tromethamine 15 Mg/Ml Vial IVPUSH 07/25/24 04:37 15 mg ONCE ONE Administration Ondansetron HCl 4 mg 07/25/24 04:36 07/25/24 05:05 Ondansetron Hcl 4 Mg/2 Ml Vial IVPUSH 07/25/24 04:37 4 mg ONCE ONE Administration Discharge Plan Discharge Clinical Impression: Back pain, Abdominal pain Patient Disposition: Home, Self-Care Instructions: Abdominal Pain (ED) Prescriptions: New ibuprofen 800 mg tablet 800 mg PO Q8H PRN (Reason: pain) Qty: 14 0RF No Action morphine 15 mg tablet 15 mg PO Q4-6H PRN (Reason: pain) Qty: 10 0RF Rx Instructions: The patient may ask for partial fill; Partial Fill upon patient request. ondansetron 4 mg tablet,disintegrating 4 mg PO Q6-8H PRN (Reason: nausea and vomiting) Qty: 14 0RF metoclopramide HCl [Reglan] 10 mg tablet 10 mg PO Q6H PRN (Reason: nausea and vomiting) Qty: 14 0RF amoxicillin-pot clavulanate 875-125 mg tablet 1 tab PO BID 10 Days Qty: 20 0RF phenazopyridine [Pyridium] 200 mg tablet 200 mg PO TID PRN (Reason: pain) 2 Days Qty: 5 0RF Stand Alone Forms: Work/School Release Print Language: Romanian
[2024-07-25 04:40] LABS: UPreg QC Valid YES; Urine Pregnancy NEGATIVE (NEGATIVE)
[2024-07-25 04:43] LABS: Influenza A PCR NEGATIVE (Negative); Influenza B PCR NEGATIVE (Negative); Resp Syncy Virus RNA Qual PCR NEGATIVE (Negative); SARS COV2 PCR INHOUSE NEGATIVE (Negative)
[2024-07-25 05:00] LABS: Troponin-I High Sensitivity < 2.7 ng/L (<3.5-17.0)
[2024-07-25 05:00] LABS: Alanine Aminotransferase 65 U/L (0-31); Albumin Level 4.2 g/dL (3.5-5.0); Anion Gap 17 (12-20); Aspartate Amino Transferase 44 U/L (5-31); Bilirubin Direct 0.2 mg/dL (0.0-0.5); Bilirubin Total 0.6 mg/dL (0.0-1.0); Blood Urea Nitrogen 7 mg/dL (9-16); Carbon Dioxide 20 mmol/L (22-29); Chloride 106 mmol/L (96-108); Creatinine Clr Calc Pharmacy 129.3; Estimated Glomerular Filt Rate > 60; Glucose Random 106 mg/dL (60-115); Lipase 10 U/L (8-78); Potassium 3.7 mmol/L (3.3-5.1); Sodium 139 mmol/L (135-145); Total Protein 7.3 g/dL (6.5-8.0)
[2024-07-25] MEDS: Ketorolac Tromethamine 15 MG/ML VIAL IVPUSH (05:05)
[2024-07-25] MEDS: ondansetron HCL 4 MG/2 ML VIAL IVPUSH (05:05)
[2024-07-25] MEDS: 0.9 % Sodium Chloride 1,000 ML 999 ML IV (05:06)
[2024-07-25 05:09] LABS: Alkaline Phosphatase 112 U/L (39-117)
[2024-07-25] MEDS: iohexoL 350 MG/ML 100 ML INFUS..BTL 85 ML IV (05:15)
[2024-07-25 06:12] VITALS: BP 120/66; PULSE 89; RESP 16; TEMP 37.1; O2SAT 97
--- NOTE | 2024-07-25 06:29 | PC.NURSE ---
pt iv fluids continue to administer at this time, pt attempting to make more urine per request to send sample.
[2024-07-25 06:40] LABS: Appearance Urine Clear; Color Urine Yellow; Glucose Urine UA Negative (Negative); Leukocyte Esterase Urine Negative (Negative); Nitrite Urine Negative (Negative); Specific Gravity - Urine >= 1.030 (1.005-1.025); Urine Blood Negative (Negative); Urine Ketones Trace mg/dL (Negative); Urine Protein Trace mg/dL (Neg-Trace)
[2024-07-25 07:04] VITALS: BP 120/66; PULSE 89; RESP 16; TEMP 37.1; O2SAT 97
== END 2024-07-25 07:05 | disposition home or self-care (01) ==
PROVIDERS: Emergency Provider Emergency Medicine
DX: R10.9 Unspecified abdominal pain (principal); M54.9 Dorsalgia, unspecified; R11.0 Nausea; Z03.818 Encounter for observation for suspected exposure to other biological agents ruled out
CPT/HCPCS: 0241U; 36415; 71045; 74177; 80048; 80076; 81003; 81025; 83690; 84484; 85025; 93005; 96361; 96374; 96375; 99284; 99285; J1885; J2405; Q9967

== ENCOUNTER → 2024-07-25 03:57 | Outpatient (BNV) | payer MEDICAID, SELFPAY | PROVIDERS: Emergency Provider Emergency Medicine; Visit Provider Internal Medicine | DX: R11.2 Nausea with vomiting, unspecified (principal) | CPT/HCPCS: 93010 ==

== ENCOUNTER → 2024-07-25 03:57 | Outpatient (BNV) | payer MEDICAID, SELFPAY | PROVIDERS: Emergency Provider Emergency Medicine; Visit Provider Radiology Vascular & Interventional Radiology | DX: R10.9 Unspecified abdominal pain (principal); M54.9 Dorsalgia, unspecified | CPT/HCPCS: 71045; 74177 ==

== ENCOUNTER 2024-07-30 10:22 | Emergency (ER) | payer MEDICAID, SELFPAY ==
[2024-07-30 10:42] VITALS: BP 142/87; PULSE 86; RESP 16; TEMP 36.3; O2SAT 97; BMI 43.1
[2024-07-30 11:12] LABS: Appearance Urine Cloudy; Color Urine Yellow; Glucose Urine UA Negative (Negative); Leukocyte Esterase Urine Moderate (2+) (Negative); Nitrite Urine Negative (Negative); PH 6.5 (5.0-9.0); UMIC TRIGGER UACC YES; Urine Blood Large (3+) (Negative); Urine Ketones Trace mg/dL (Negative); Urine Protein 30 (1+) mg/dL (Neg-Trace)
[2024-07-30 11:51] LABS: Bacteria Urine 4+ (None Seen); Hyaline Casts Urine 0-2 /LPF (0-2); UACC Culture Trigger YES; WBC Urine >50 /HPF (0-5)
[2024-07-30 15:11] LABS: MANUAL DIFF FLAG NO
[2024-07-30 15:12] LABS: Basophils Percent Auto 0.3 % (0-2); Eosinophils Absolute Auto 0.1 X10*3/uL (0.0-0.4); Eosinophils Percent Auto 1.7 % (0-4); Hematocrit 41.4 % (37.0-47.0); Hemoglobin 14.5 g/dl (12.0-16.0); Imm Gran Abs Auto 0.02 X10*3/uL (0.00-0.03); Imm Gran Pct Auto 0.3 % (0.0-0.4); Lymphocytes Absolute Auto 1.9 X10*3/uL (1.2-4.9); Lymphocytes Percent Auto 31.7 % (20-40); Mean Corpuscular Hemoglobin 32.5 pg (27.0-33.0); Mean Corpuscular Volume 92.8 fL (80.0-98.0); Mean Platelet Volume 9.7 fL (9.4-12.3); Monocytes Absolute Auto 0.4 X10*3/uL (0.1-1.2); Monocytes Percent Auto 6.4 % (2-11); Neutrophils Absolute Auto 3.6 x10*3/uL (2.0-8.3); Neutrophils Percent Auto 59.6 % (45-73); Platelet Count 231 X10*3/uL (160-400); Red Blood Count 4.46 X10*6/uL (4.20-5.50); Red Cell Distribution Width 13.7 % (11.0-16.0)
[2024-07-30 15:27] LABS: Alanine Aminotransferase 55 U/L (0-31); Albumin Level 4.2 g/dL (3.5-5.0); Anion Gap 14 (12-20); Aspartate Amino Transferase 44 U/L (5-31); Bilirubin Total 0.5 mg/dL (0.0-1.0); Blood Urea Nitrogen 6 mg/dL (9-16); Calcium 9.4 mg/dL (8.4-10.2); Carbon Dioxide 23 mmol/L (22-29); Chloride 106 mmol/L (96-108); Creatinine Clr Calc Pharmacy 135.8; Estimated Glomerular Filt Rate > 60; Glucose Random 96 mg/dL (60-115); Potassium 4.3 mmol/L (3.3-5.1); Sodium 139 mmol/L (135-145); Total Protein 7.4 g/dL (6.5-8.0)
[2024-07-30 15:37] LABS: Alkaline Phosphatase 102 U/L (39-117)
[2024-07-30 16:04] VITALS: BP 143/97; PULSE 85; RESP 16; TEMP 36.2; O2SAT 98
--- NOTE | 2024-07-30 16:04 | ED_ITS ---
HPI - Female Genitourinary General Chief complaint: Urogenital-Female Stated complaint: blood in urine, back and stomach pain Time Seen by Provider: 07/30/24 16:02 Source: patient and RN notes reviewed Mode of arrival: ambulatory Limitations: no limitations History of Present Illness ED Provider: Ulices ORTEGA Narrative: 29-year-old female presents for evaluation of abdominal pain. Patient was seen here a few days ago for similar. She was ultimately discharged home with just ibuprofen. She states that since her discharge she has developed blood in her urine which she did not have at the time She reports lower abdominal cramping and burning with urination. Denies any fevers, chills, flank pain No vaginal bleeding or discharge Related Data Previous Rx's ?Medication ?Instructions ?Recorded morphine 15 mg immediate release 15 mg PO Q4-6H PRN pain #10 tabs 03/07/22 tablet ondansetron 4 mg disintegrating 4 mg PO Q6-8H PRN nausea and 03/07/22 tablet vomiting #14 tabs metoclopramide HCl 10 mg tablet 10 mg PO Q6H PRN nausea and 11/11/22 (Reglan) vomiting #14 tabs amoxicillin 875 mg-potassium 1 tab PO BID 10 days #20 tabs 06/08/24 clavulanate 125 mg tablet phenazopyridine 200 mg tablet 200 mg PO TID PRN pain 2 days #5 06/08/24 (Pyridium) tabs ibuprofen 800 mg tablet 800 mg PO Q8H PRN pain #14 tabs 07/25/24 cefuroxime axetil 250 mg tablet 250 mg PO Q12H #14 tabs 07/30/24 phenazopyridine 200 mg tablet 200 mg PO TID PRN pain 6 doses #6 07/30/24 (Pyridium) tabs Allergies Allergy/AdvReac Type Severity Reaction Status Date / Time No Known Allergies Allergy Verified 07/30/24 10:44 Review of Systems 2 Constitutional: Constitutional: Denies body ache(s), Denies chills and Denies fever(s) Eyes: Eyes: Denies blurry vision ENT: Denies vertigo and Denies dizziness Cardiovascular: Cardiovascular: Denies chest pain and Denies dyspnea Respiratory: Respiratory: Denies cough and Denies dyspnea Gastrointestinal: Gastrointestinal: Reports abdominal pain, Reports nausea and Denies vomiting Genitourinary: Genitourinary: Reports hematuria, Reports dysuria, Reports pelvic pain and Denies vaginal discharge Musculoskeletal: Musculoskeletal: Denies back pain Neurologic: Denies vertigo and Denies dizziness PMFSH Social History Social History Alcohol intake: current Alcohol intake frequency: holidays/special occasions only Substance Use Type: Marijuana Advance Directives: No Advance Directives Information Provided: No Do you have a plan to hurt others: No Plan Physical Exam 2 Vital Signs: Vital Signs: Last Vital Signs Temp 97.2 F 07/30/24 16:04 Pulse 85 07/30/24 16:04 Resp 16 07/30/24 16:04 BP 143/97 H 07/30/24 16:04 Pulse Ox 98 07/30/24 16:04 O2 Del Method Room Air 07/30/24 16:04 BMI result Body Mass Index 43.1 Const: General: healthy appearing, comfortable, no acute distress, alert and awake Nutritional Appearance: well nourished Orientation/consciousness: p atient oriented x3 HEENT: Head: Yes normocephalic and Yes atraumatic Throat: Yes posterior oropharynx normal Eyes: Eyelids: Yes eyelids normal Conjunctivae: conjunctivae normal S clerae: sclerae normal Corneas: corneas normal Pupils: Equal, round and reactive pupils present EOM: EOMs intact bilaterally Neck: Neck: Yes full ROM Resp: Effort & Inspection: normal respiratory effort, able to speak in complete sentences and not labored GI: Inspection: No distended Palpation (GI): Soft to palpation, not firm, nontender, no guarding and not rigid Skin: General skin exam: elasticity normal Neuro: General: patient oriented x3 Cranial nerves: Yes Equal, round and reactive pupils present and Yes Bilaterally intact EOM present Cognition (Neuro): normal cognition Medical Decision Making Medical Decision Making MDM Narrative: 29-year-old female presents for evaluation abdominal pain with blood in her urine. I did review her recent workup including the CT scan from a few days ago on the 25 of July. At the time the CT scan showed possible cystitis, but the patient's urinalysis was clear. Today that are significant bacteria in the urine, hematuria. Her clinical picture is most consistent with a cystitis. We will give her cefuroxime b.i.d. x1 week. There was no evidence of sepsis. She will be referred to Urology in the event that her symptoms did not improve and she may need a cystoscopy Differential Diagnosis Differential Diagnoses: The differential diagnosis associated with the presentation includes Cystitis Hematuria Obstructive uropathy UTI Bladder mass less likely Lab Data MDM Lab Attestation statement: I reviewed the patient's lab results. No leukocytosis or anemia. Normal platelet count. No electrolyte abnormalities. Renal function within normal limits. Urinalysis significant for hematuria and bacteria 07/30/24 15:07 07/30/24 15:07 Labs: Lab Results 07/30/24 07/30/24 Range/Units 11:00 15:07 WBC 6.0 (4.8-10.8) X10*3/uL RBC 4.46 (4.20-5.50) X10*6/uL Hgb 14.5 (12.0-16.0) g/dl Hct 41.4 (37.0-47.0) % MCV 92.8 (80.0-98.0) fL MCH 32.5 (27.0-33.0) pg MCHC 35.0 (31.0-35.0) g/dl RDW 13.7 (11.0-16.0) % Plt Count 231 (160-400) X10*3/uL MPV 9.7 (9.4-12.3) fL Immature Gran % (Auto) 0.3 (0.0-0.4) % Neut % (Auto) 59.6 (45-73) % Lymph % (Auto) 31.7 (20-40) % [place] % (Auto) 6.4 (2-11) % Eos % (Auto) 1.7 (0-4) % Baso % (Auto) 0.3 (0-2) % Lymph # (Auto) 1.9 (1.2-4.9) X10*3/uL [place] # (Auto) 0.4 (0.1-1.2) X10*3/uL Eos # (Auto) 0.1 (0.0-0.4) X10*3/uL Baso # (Auto) 0.0 (0.0-0.2) X10*3/uL Abs Immat Gran (auto) 0.02 (0.00-0.03) X10*3/uL Absolute Neuts (auto) 3.6 (2.0-8.3) x10*3/uL Absolute Nucleated RBC 0.000 (0.0-0.012) X10*3/uL Nucleated RBC % (auto) 0.0 (0.0-0.2) /100WBC Sodium 139 (135-145) mmol/L Potassium 4.3 (3.3-5.1) mmol/L Chloride 106 (96-108) mmol/L Carbon Dioxide 23 (22-29) mmol/L Anion Gap 14 (12-20) BUN 6 L (9-16) mg/dL Creatinine 0.69 (0.5-1.4) mg/dL Estim Creat Clear Calc 135.8 Estimated GFR > 60 Random Glucose 96 (60-115) mg/dL Calcium 9.4 (8.4-10.2) mg/dL Total Bilirubin 0.5 (0.0-1.0) mg/dL AST 44 H (5-31) U/L ALT 55 H (0-31) U/L Alkaline Phosphatase 102 (39-117) U/L Total Protein 7.4 (6.5-8.0) g/dL Albumin 4.2 (3.5-5.0) g/dL Urine Color Yellow Urine Appearance Cloudy Urine pH 6.5 (5.0-9.0) Ur Specific [place] 1.020 (1.005-1.025) Urine Protein 30 (1+) H (Neg-Trace) mg/dL Urine Glucose (UA) Negative (Negative) mg/dL Urine Ketones Trace (Negative) mg/dL Urine Blood Large (3+) H (Negative) Urine Nitrite Negative (Negative) Ur Leukocyte Esterase Moderate (2+) H (Negative) Urine RBC 3-5 H (0-2) /HPF Urine WBC >50 H (0-5) /HPF Ur Squamous Epith Cells 11-20 (0-2) /HPF Urine Bacteria 4+ (None Seen) Hyaline Casts 0-2 (0-2) /LPF Discharge Plan Discharge Clinical Impression: Cystitis Patient Disposition: Home, Self-Care Instructions: Urinary Tract Infection in Women (ED) Additional Instructions: Your urinalysis today did show a significant UTI with bacteria and blood in the urine. I did review your CT scan from a few days ago that showed inflammation of the bladder consistent with a UTI Take the antibiotics twice daily for 1 week. You may use Pyridium for bladder pain Follow-up with urology Return for new or worsening symptoms Prescriptions: New cefuroxime axetil 250 mg tablet 250 mg PO Q12H Qty: 14 0RF phenazopyridine [Pyridium] 200 mg tablet 200 mg PO TID PRN (Reason: pain) Qty: 6 0RF No Action morphine 15 mg tablet 15 mg PO Q4-6H PRN (Reason: pain) Qty: 10 0RF Rx Instructions: The patient may ask for partial fill; Partial Fill upon patient request. ondansetron 4 mg tablet,disintegrating 4 mg PO Q6-8H PRN (Reason: nausea and vomiting) Qty: 14 0RF metoclopramide HCl [Reglan] 10 mg tablet 10 mg PO Q6H PRN (Reason: nausea and vomiting) Qty: 14 0RF amoxicillin-pot clavulanate 875-125 mg tablet 1 tab PO BID 10 Days Qty: 20 0RF phenazopyridine [Pyridium] 200 mg tablet 200 mg PO TID PRN (Reason: pain) 2 Days Qty: 5 0RF ibuprofen 800 mg tablet 800 mg PO Q8H PRN (Reason: pain) Qty: 14 0RF Referrals: Herve Bertrand MD [Physician] - (frequent UTI) Stand Alone Forms: Work/School Release Print Language: Malagasy
[2024-07-30 16:36] VITALS: BP 143/97; PULSE 85; RESP 16; TEMP 36.2; O2SAT 98
--- OUTSIDE RECORDS SUMMARY | 2024-07-30 18:52 | XMS_ITS | Encounter Summary ---
Author Organization [facility] Address [address] [place] [address] [address] [place] [address] Care Team Providers Care Hospital Superintendent Name Role Phone Emigdio Steven Unasspaige Primary Care Provider U Cheryl Stallings RESIDENT SERVICES SUPERVISOR Primary Care Provider [phone] Brandon Mac PA-C Primary Care Provider [phone] Cheryl Zaragoza RESIDENT SERVICES SUPERVISOR Primary Care Provider [phone] Hortencia Rizzo Unavailable Provider, Not In System Primary Care Provider Un available Encounter Details Date Type Department Care Team (Latest Contact Info) Description 11/17/2021 Abstract [facility] CONVERSIONS Dental, Provider, DDS Social History Tobacco [...] on filedocumented in this encounter Care Teams Hospital Superintendent Relationship Specialty Start Date End Date Emigdio Steven PCP - General Family Medicine 07/21/23 07/24/23 Cheryl Zaragoza NP [address] [place] [id number] PCP - General Family Medicine 07/25/23 07/26/23 Brandon Mac PA-C [address] [place] [address] PCP - General Family Medicine 07/27/23 07/28/23 Cheryl Zaragoza NP [address] [place] [address] PCP - General Family Medicine 07/29/23 06/07/24 Provider, Not In System PCP - General Family Medicine 06/08/24 Hortencia Rizzo [address] [place] [id number] Community Health Worker 09/06/2310/17 documented as of this encounter
--- OUTSIDE RECORDS SUMMARY | 2024-07-30 18:52 | XMS_ITS | Clinical Summary ---
Author Organization [employer] Address [address] [place] [address] [address] [place] [address] Care Team Providers Care Field Reviewer Name Role Phone Provider, Not In System Primary Care Provider Un available Allergies No known active allergies Medications * [...] EDT): Nutrition and exercise counseling Refer to [facility] program Praised for her efforts and encouraged her to continue Bipolar 2 disorder 09/09/2023 Assessment & Plan (09/09/2023 3:06 PM EDT): Mood is stable and she is feeling well. Encouraged to follow up with Psych as scheduled Cervical high risk HPV (human papillomavirus) te st positive 09/09/2023 Overview (09/09/2023): Pap August 2023, NILM with HPV Positive, repeat due August 2024 Encounters Date Type Department Care Team Description 06/08/2024 Patient Outreach [address] [id number] Genet Ware LPN from Last 3 Months Family History Medical History Relation Name Comments [...] the past 12 months, has t he [employer], oil or [employer] threatened to shut off services in your [...] Comments Depression Screening 1993 Lipid Panel 1993 Alcohol/Substance Use Screening 2005 Hepatitis B Vaccines (1 of 3 - 19+ 3-dose series) 2012 COVID-19 Vaccine ( - 2023-2 5 season) 2023 Influenza Vaccine (#1) 2023 12/16/2009 SDOH Screening 06/30/2024 07/01/2023 Cervical Cancer Screening [...] on patient's age to complete this topic Pneumococcal Vaccine: Pediatrics (0 to 5 Years) and At-Risk Patients (6 to 49) Years) Aged Out No longer eligible b ased on patient's age to complete this topic [...] Hepatitis C Antibody NON-REACT RAYRAY NON-REACT RAYRAY [facility] [employer] Comment: HCV antibody was non-reactive. There is no laboratory evidence of HCV infection. In most cases, no further action is required. However, if recent HCV exposure is suspected, a test for HCV RNA (test code 85033) is suggested. For additional information please refer to http://education.Cashier Live/faq/IWP84c8 (This link is being provided for informational/ educational purposes only.) Blood Venous blood specimen / Unknown 08/25/2023 10:08 AM EDT 08/25/2023 10:11 AM EDT Narrative [facility] - 08/26/2023 9:32 AM EDT COLLECTION KIT GIVEN TO PATIENT. PATIENT ADVISED TO RETURN. us Cheryl Zaragoza NP LAB BLOOD ORDERABLES Final Resul t [facility] [address] [facility], [facility], [place] [address] [facility] [address] [place] [address] * HIV-1/2 Antigen and Antibodies, Fourth Generation, with Reflexes (08/25/2023 10:08 AM EDT) HIV Antigen/Antibody, 4th Generation NON-REAC TIVE NON-REAC TIVE [facility] [facility] [employer] Comment: HIV-1 antigen and HIV-1/HIV-2 antibodies were [...] ?? For additional information please refer to http://education.Cashier Live/faq/BHO004 (This link is being provided for informational/ [...] ORDERABLES Final Resul t [facility] [address], [place] [address] [facility] [address] [place] [address] * (ABNORMAL) Image-Guided Pap with Age-Based Screening??with CT/NG,??Trichomonas (08/25/2023 12:00 AMEDT) Comment [facility] Comment: This order for age-based cervical cancer and STI screening follows ACOG guidelines(PB 168, 140, GZZ109). See individual assays for performing site location. Clinical Information: [facility] Comment:ASYMPTOMATIC LMP: [facility] Comment:08/18/23 Prev. PAP: [facility] Comment:NONE GIVEN Prev. BX: [facility] Comment:NONE GIVEN SOURCE: [facility] Comment:None given Statement Of Adequacy: [facility] Comment: Satisfactory for evaluation. Endocervical/transformation zone component present. Interpretation/Res ult: [facility] Comment: Cytology Results: Negative for intraepithelial lesion or malignancy. Infection [facility] [place] [facility] Comment: Shift in vaginal fransico suggestive of bacterial vaginosis. COMMENT: [facility] [employer] Comment: This Pap test has been evaluated with computer assisted technology. Base Draw Operator: [facility] [place] [employer] Comment: RK, CT(ASCP) CT screening location: [address] ??[address] Review Base Draw Operator: [facility] [facility] [place] [employer] Comment: GSG, CT(ASCP) CT screening location: [address] ??[address] (Always Message) [facility] [employer] [place] [employer] Comment: EXPLANATORY NOTE: The Pap is a [...] information. HPV nRNA E6/E7 Detected(A) Not Detected [facility] Comment: Methodology: [employer]-Mediated Amplification This assay detects E6/E7 viral messenger RNA (mRNA) from 14 high-risk HPV types (16,18,31,33,35,39,45,51,52,56,58,59,66,68). Cervical sources are required for HPV testing. If a vaginal source from a patient who has had a total hysterectomy with removal of cervix was submitted, please contact the testing laboratory for alternative testing options. For additional information, please refer to http://education.Cashier Live/faq/BYN728z9 (This link if provided for information/ educational purposes only.) Chlamydia trachomatis RNA, TMA, Urogenital NOT DETECTED NOT DETECTED [facility] Neisseria gonorrhoeae RNA, TMA, Urogenital NOT DETECTED NOT DETECTED [facility] (Always Message) [facility] Comment: The analytical performance characteristics of this assay, when used to test SurePath(TM) specimens have been determined by [facility]. The modifications have not been cleared or approved by the FDA. This assay has been validated pursuant to the CLIA regulations and is used for clinical purposes. For additional information, please refer to https://Modti.Access Media 3.GetMeMedia/faq/YFM824 (This link is being provided for information/ educational purposes only.) Trichomonas vaginalis, QL, TMA, PAP Vial NOT DETECTED NOT DETECTED [facility] Comment: The analytical performance characteristics of this assay have been determined by [facility]. The modifications have not been cleared or approved by the FDA. This assay has been validated pursuant to the CLIA regulations and is used for clinical purposes. For additional information, please refer to http://Modti.[employer]ash[employer]/ faq/Trichomonastma (This link is being provided for information/ educational purposes only.) Pap Vial 08/25/2023 08/26/2023 4:4 7 AM EDT Cheryl Zaragoza NP LAB CYTOLOGY ORDERABLES Final Re sult [facility] [address], [place] [address] [facility] [place] [facility] [address] [place] [address] from Last 3 Months or Most Recently Relevant to Health Maintenance Insurance N [employer] [facility] [address] C3 Care Teams Field Reviewer Relationship Specialty Start Date End Date Provider, Not In System PCP - General Family Medicine 06/08/24
== END 2024-07-30 16:36 | disposition home or self-care (01) ==
PROVIDERS: Emergency Provider Emergency Medicine Emergency Medical Services
DX: N30.91 Cystitis, unspecified with hematuria (principal); R30.0 Dysuria; R10.30 Lower abdominal pain, unspecified; Z79.899 Other long term (current) drug therapy
CPT/HCPCS: 36415; 80053; 81001; 85025; 87086; 87088; 87186; 99282; 99283